=== PATIENT | female | born 1950 | race Caucasian/White ===

== ENCOUNTER 2024-09-25 14:19 | Outpatient (AMB) | payer MEDICARE, OTHER, SELFPAY ==
[2024-09-25 14:41] VITALS: BMI 24.1
--- NOTE | 2024-09-25 14:41 | MHC.OFFVIS ---
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 She describes her pains as sharp in nature. Her pains have gotten worse over the last year in spite of continued non operative treatment. She has had cortisone injections in the past which gave her no relief. She has also had viscosupplementation injections which gave her very good relief. She wishes to hold off on surgery for as long as possible. She has failed the last 3 months of conservative treatment which has consisted of physical therapy exercises, Tylenol, anti-inflammatory medicines and topical creams. At this point her bilateral knee pains are interfering with her activities of daily living and her ability to sleep well through the night. Allergies influenza virus vaccine, specific [Influenza Virus Vacc,Specific] Allergy (Unknown, Unverified 09/25/24 14:45) DOUBLE VISION FROM FLU SHOT acetaminophen [From VICODIN] Adverse Reaction (Unknown, Unverified 09/25/24 14:45) DIZZY cimetidine [From TAGAMET] Adverse Reaction (Unknown, Unverified 09/25/24 14:45) DIZZY SEASONAL ALLERGIES Allergy (Unknown, Uncoded 09/25/24 14:45) SNEEZING, ITCHY WATERY EYES From COMPAZINE Adverse Reaction (Unknown, Uncoded 09/25/24 14:45) JITTERY From TAGAMET Adverse Reaction (Unknown, Uncoded 09/25/24 14:45) DIZZY From VICODIN Adverse Reaction (Unknown, Uncoded 09/25/24 14:45) DIZZY Medication List - Last Reconciled 09/25/24 by Juan Ramon Jensen MD escitalopram oxalate 10 mg PO DAILY lorazepam 0.5 mg PO DAILY topiramate XR 25 mg PO DAILY Physical Exam Vital Signs: BMI result Body Mass Index 24.1 Const Other: Well-nourished well-developed very friendly female awake alert and oriented x3 in no acute distress Extrem Other: Bilateral lower extremity examination shows good capillary refill, no skin lesions noted, normal sensation light touch Bilateral knee examination shows minimal effusions, palpable crepitus with range of motion, pain with range of motion, range of motion from -3 degrees to 120 degrees, no instability Assessment & Plan Assessment & Plan (1) Osteoarthritis of left knee: Code(s): M17.12 - Unilateral primary osteoarthritis, left knee Category: Medical (2) Osteoarthritis of right knee: Code(s): M17.11 - Unilateral primary osteoarthritis, right knee Category: Medical Plan Ms. Jean presents with bilateral knee pains due to osteoarthritis. I had a lengthy discussion with the patient regarding the treatment options. The patient wishes to hold off on surgery for as long as possible. I agree with this plan. She has not gotten good relief from cortisone injections in the past. Thus, I will see whether or not her insurance company will cover a another viscosupplementation injection for both of her knees. I will see her back once the injections are available. Feel free to call me at any time should questions regarding her orthopedic management arise. I spent 20 minutes in reviewing the patient's records and imaging studies, seeing the patient and documenting in the medical record. Orders: Orders XR knee LT 3V Today M25.562 - Pain in left knee XR knee RT 3V Today M25.561 - Pain in right knee Coding Level of Care Code Est Pt Level 3 (99541) Complex EM visit Add On G2211 Diagnoses Osteoarthritis of left knee M17.12 Osteoarthritis of right knee M17.11
--- OUTSIDE RECORDS SUMMARY | 2024-09-26 22:03 | XMS_ITS | Patient Health Record ---
Author Organization [facility] Address [address] [place] [address] Care Team Providers Care Concrete [employer] [place] Name Role Phone Ramona Mayer Primary Care Provider Mariam Meléndez Unavailable [phone] Allergies Allergen (clinical drug ingredient) Drug/Non Drug Allergy documented on EMR Reaction Allergy Type Onset Date Status cimetidine Tagamet HB Unknown Drug Allergy Activ e Compazine Unknown Drug Allergy Active Reason For Referral No Information Medications Medication SIG (Take, Route, Frequency, Duration) Notes Start Date End Date Status buPROPion HCl ER (SR) 150 MG 1 tablet in the morning Orally Once a day for 30 day(s) Not-Taking LORazepam 0.5 MG 1 tablet at bedtime as needed Orally Once a day PRN Active Topiramate 50 MG as directed Orally Once a day Active SUMAtriptan Succinate 50 MG 1 tablet at least 2 hours between doses as needed Orally Twice a day PRN Not-Taking Lexapro 5 MG 1 tablet Orally Once a day Active Sertraline HCl 100 MG 1 tablet Orally On ce a day for 30 day(s) Not-Taking Omeprazole Not-Takin g Levothyroxine Sodium Not-Taking Estradiol Not-Taking Ibuprofen 800 MG 1 tablet with food o r milk as needed Orally Three times a day after surgery for 14 days 11/04/2023 Active Atorvastatin Calcium Not-Taking Immunizations Vaccine Route Administration Date Status Comme nts COVID-19 Pfizer BioNTech Vaccine Unknown 10/02/2021 Administered 1st 12/24/2020 2nd 01/14/2021 Social History Tobacco Use: Social History Observation Description Date Details (start date - stop date) Former Smoker NA - NA Alcohol Screen Question Answer Notes Did you have a drink contain ing alcohol in the past year? Yes How often did you have a dri nk containing alcohol in the past year? Monthly or less (1 point) Points 1 Interpretation Negative Tobacco use other than smoking: Question Answer Notes Are you an other tobacco user? No Tobacco Control (Standard) Question Answer Notes Tobacco use: Former smoker Additional Findings: Tobacco non-user Ex-cigaret te smoker Problems Problem Type SNOMED Code ICD Code Onset Dates Problem Status W/U Status Risk Notes Problem [id number] Hallux valgus (acquired) , left foot (M20.12) Active confirmed Decision for surgery (4) Problem 401470547832085 Hallux valgus (acquired) , right foot (M20.11) Active confirmed Problem [id number] Hammer toe of right foot (M20.41) Active confirmed Problem 808254420 Hammer toe of left foot (M20.42) Active confirmed Decision for surgery (4) Vital Signs Blood pressure diastolic 70 mm Hg 09/05/2024 Height 5ft5in in 09/05/2024 Blood pressure systolic 130 mm Hg 09/05/2024 Weight 148 lbs 09/05/2024 BMI 24.63 kg/m2 09/05/2024 Encounters Encounter Location Date Provider Diagnosis Surgery [facility] ([facility]) [address] [place] [address] 11/16/[address] [facility] ([facility]) [address] [place] [address] 09/26/2024 Mariam Salter [facility] [address] 11/02/2023 Mariam Salter Hallux valgus (acquired), left foot M20.12 ; Hammer toe of left foot M20.42 ; Pain in left toe(s) M79.675 and Bunion, left foot M21.[address] [facility] [address] 11/22/2023 Mariam Salter Hammer toe of left foot M20.42 ; Hallux valgus (acquired), left foot M20.12 and Bunion, left foot M21.612 [facility] [place] [address] 11/28/2023 Mariam Perica Hammer toe of left foot M20.42 ; Hallux valgus (acquired), left foot M20.12 and Bunion, left foot M21.[address] [facility] [address] 12/14/2023 Mariam Perica Hammer toe of left foot M20.42 ; Hallux valgus (acquired), left foot M20.12 and Bunion, left foot M21.[address] [facility] [address] 01/03/2024 Mariam Perica Hammer toe of left foot M20.42 ; Hallux valgus (acquired), left foot M20.12 ; Bunion, left foot M21.612 ; Pain in right foot M79.671 ; Pain in right ankle and joints of right foot M25.571 ; Hallux valgus (acquired), right foot M20.11 ; Hammer toe of right foot M20.41 ; Bunion, right foot M21.611 and Toe contracture, right M20.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 [facility] [address] 09/05/2024 Mariam Perica Hammer toe of right foot M20.41 ; Hallux valgus (acquired), right foot M20.11 ; Pain in right foot M79.671 and Toe contracture, right M20.5X1 [facility] [address] 01/03/2024 Mariam Perica [facility] [place] [address] [place] [address] 11/11/2023 Mariam Perica [facility] [address] [place] [address] 11/17[facility] [address] [place] [address] 11/28/2023 Mariam Perica [facility] [address] [address] 11/30/2023 Mariam Perica [facility] [address] [address] 08/28/2024 [facility] [address] [address] 09/21/2024 Mariam Salter Assessments Encounter Date Diagnosis (ICD Code) Assessment Notes Treatment Notes Treatment Clinical Notes Section Notes 11/02/2023 Hallux valgus (acquired), left foot (ICD-10 - M20.12) Decision for surgery (4) 11/02/2023 Hammer toe of left foot (ICD-10 - M20.42) Decision for surgery (4) 11/22/2023 Hallux valgus (acquired), left foot (ICD-10 - M20.12) 11/22/2023 Hammer toe of left foot (ICD-10 - M20.42) 11/28/2023 Hammer toe of left foot (ICD-10 - M20.42) 12/14/2023 Hammer toe of left foot (ICD-10 - M20.42) 01/03/2024 Hammer toe of left foot (ICD-10 - M20.42) 09/05/2024 Hallux valgus (acquired), right foot (ICD-10 - M20.11) 09/05/2024 Hammer toe of right foot (ICD-10 - M20.41) 09/05/2024 Pain in right foot (ICD-10 - M79.671) 01/03/2024 Bunion, left foot (ICD-10 - M21.612) 11/28/2023 Bunion, left foot (ICD-10 - M21.612) 12/14/2023 Hallux valgus (acquired), left foot (ICD-10 - M20.12) 01/03/2024 Hallux valgus (acquired), left foot (ICD-10 - M20.12) 11/22/2023 Bunion, left foot (ICD-10 - M21.612) 11/28/2023 Hallux valgus (acquired), left foot (ICD-10 - M20.12) 11/02/2023 Pain in left toe(s) (ICD-10 - M79.675) 11/02/2023 Bunion, left foot (ICD-10 - M21.612) 01/03/2024 Pain in right foot (ICD-10 - M79.671) 12/14/2023 Bunion, left foot (ICD-10 - M21.612) 09/05/2024 Toe contracture, right (ICD-10 - M20.5X1) 01/03/2024 Pain in right ankle and joints of right foot (ICD-10 - M25.571) 01/03/2024 Hallux valgus (acquired), right foot (ICD-10 - M20.11) 01/03/2024 Hammer toe of right foot (ICD-10 - M20.41) 01/03/2024 Bunion, right foot (ICD-10 - M21.611) 01/03/2024 Toe contracture, right (ICD-10 - M20.5X1) Plan Of Treatment Pending Test Test Name Order Date X ray : Foot, left 3V 11/02/2023 X ray : Foot, left 3V 11/22/2023 X ray : Foot, left 3V 11/28/2023 X ray : Foot, left 3V 12/14/2023 X ray : Foot, left 3V 01/03/2024 X ray : Foot, left 3V 01/07/2023 X ray : Foot, right 3V 01/07/2023 X ray : Foot, right 3V 01/03/2024 X ray : Foot, right 3V 09/05/2024 Next Appt Details Provider Name:Mariam small, 10/02/2024 01:45:00 PM, [address] [place] [address], [phone], Provider Name:Mariam small, 10/08/2024 11:00:00 AM, [address] [place] [address], [phone], Provider Name:Mariam small, 10/23/2024 01:45:00 PM, [address] [place] [address], [phone], Insurance Providers Payer Name Payer Address Payer Phone Subscriber Number Group Number Insured Name Patient Relationship to Insured Coverage Start Date Coverage End Date Medicare National [facility] [address] [place] [address] [phone] [id number] Ramona Jean Self - patient is the insured [employer] [address] [place] [address] [phone] [id number] Ramona Jean Self - patient is the insured Medical (General) History Medical History History ICD Code Anxiety Broken bones Cataracts Gall bladder problems Headaches/Migraines Measles Mumps Chicken pox Osteopenia Surgical History Surgery Date(Month/Year) gall bladder 2016 foot surgery 2019 [facility] 2004 finger surgery 09/08 Tony w/Aubrey Left, ALEXIA w/vinicius L4 pos sible keena osteotomy 11/09 eye surgery 08/27/24
--- OUTSIDE RECORDS SUMMARY | 2024-09-26 22:03 | XMS_ITS ---
Author Organization [facility] Address [address] [place] [address] Care Team Providers Care Patient Relations Coordinator Name Role Phone Ramona Mayer Primary Care Provider Mariam Meléndez [phone] REASON FOR VISIT [employer] Coverage Encounters Encounter Location Date Provider Diagnosis [address] [address] 09/21/2024 Mariam Salter Plan Of Treatment Next Appt Details Provider Name:Mariam small, 10/02/2024 01:45:00 PM, [address] [place] [address], [phone], Provider Name:Mariam small, 10/08/2024 11:00:00 AM, [address] [place] [address], [place], [phone], Provider Name:Mariam smlal, 10/23/2024 01:45:00 PM, [address] [place] [address], [phone], Progress Notes * Jamison JEANOB:1950 (74 yo F)Acc No.[id number]:09/21/2024 Patient:?Ramona JEAN :1950???Age:74 Y???Sex:Female Address:[address] [place] [address], [facility] [place], [address] * true * Date:? Generated for Terry cervantes/Mick/Teresaitting on:?09/26/2024 10:03 PM EST
--- OUTSIDE RECORDS SUMMARY | 2024-09-26 22:03 | XMS_ITS ---
Author Organization [facility] Address [address] [place] [address] Care Team Providers Care Senior Planning Manager Name Role Phone Ramona Mayer Primary Care Provider Mariam Meléndez [phone] Encounters Encounter Location Date Provider Diagnosis Surgery [facility] ([facility] [address] [place] [address] 09/26/2024 Mariam Salter Plan Of Treatment Next Appt Details Provider Name:Mariam small, 10/02/2024 01:45:00 PM, [address] [place] [address], [phone], Provider Name:Mariam small, 10/08/2024 11:00:00 AM, [address] [place] [address], [phone], Provider Name:Mariam small, 10/23/2024 01:45:00 PM, [address] [place] [address], [phone], Progress Notes * Karla JEANeDOB:1950 (74 yo F)Acc No.[id number]:09/26/2024 Patient:?Ramona JEAN Provider:?Mariam Salter DPM :1950???Age:74 Y???Sex:Female D ate:09/26/2024 Address:[address] [place] [address], [place] [address], [phone] Pcp:Ramona Mayer * Images: * The named appointment provid er may or may not be the originator of this progress note, and it is not deemed complete until electronically signed by the appointment provider. Sign off status: Pending * Provider:Joey Salter DPM Date:?08/2024 Generated for Terry cervantes/Mick/Miguel Ángel on:?09/26/2024 10:03 PM EST
--- OUTSIDE RECORDS SUMMARY | 2024-09-26 22:03 | XMS_ITS ---
Author Organization [employer] [facility] [employer] [facility] Address [address] [place] [address] Care Team Providers Care Upfitter Name Role Phone Ramona Mayer Primary Care Provider Mariam Meléndez Unavailable [phone] Allergies Allergen (clinical drug ingredient) Drug/Non Drug Allergy documented on EMR Reaction Allergy Type Onset Date Status cimetidine Tagamet HB Unknown Drug Allergy Activ e Compazine Unknown Drug Allergy Active REASON FOR VISIT Foot pain Medications Medication SIG (Take, Route, Frequency, Duration) Notes Start Date End Date Status Sertraline HCl 100 MG 1 tablet Orally On ce a day for 30 day(s) Not-Taking Omeprazole Not-Takin g Levothyroxine Sodium Not-Taking Estradiol Not-Taking Atorvastatin Calcium Not-Taking buPROPion HCl ER (SR) 150 MG 1 [...] 1 tablet Orally Once a day Active Ibuprofen 800 MG 1 tablet with food o r milk as needed Orally Three times a day after surgery for 14 days 11/04/2023 Active Social History Tobacco Use: Social History Observation Description Date Details (start date - stop date) Former Smoker NA - NA Tobacco use other than smoking: Question Answer Notes Are you an other tobacco user? 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 Assessments Encounter Date Diagnosis (ICD Code) Assessment Notes Treatment Notes Treatment Clinical Notes Section Notes 09/05/2024 Hammer toe of right foot (ICD-10 - M20.41) 09/05/2024 Hallux valgus (acquired), right foot (ICD-10 - M20.11) 09/05/2024 Pain in right foot (ICD-10 - M79.671) 09/05/2024 Toe contracture, right (ICD-10 - M20.5X1) Plan Of Treatment Medication Medication Name Sig Start Date Stop Date Notes Ibuprofen 800 MG 1 tablet with food o r milk as needed Orally Three times a day after surgery for 14 days 11/04/2023 Pending Test Test Name Order Date X ray : Foot, right 3V 09/05/2024 Next Appt Details Follow Up: after surgery, Re ason: Provider Name:Mariam small, 10/02/2024 01:45:00 PM, [address] [place] [address], [phone], Provider Name:Mariam small, 10/08/2024 11:00:00 AM, [address] [place] [address], [place], [phone], Provider Name:Mariam small, 10/23/2024 01:45:00 PM, [address] [place] [address], [phone], Progress Notes * Jamison JEANOB:1950 (74 yo F)Acc No.[id number]:09/05/2024 Progress Note Patient:?Ramona JEAN Provider:?Mariam Salter DPM :1950???Age:74 Y???Sex:Female D ate:09/05/2024 Address:[address] [place] [address] [id number] Pcp:Ramona Mayer Subjective: * Chief Complaints: * ???Foot pain * HPI: ???Foot Pain:?Nature:?aching , tenderness , throbbing.?Location:?Great toe joint, RIGHT and 2nd toe?.?Duration:?several years.?Onset:?activity , gradual.?Course:?worse.?Aggravated:?any pressure , standing , walking , shoes.?Treatments:?rest/alter normal daily activity, previous bunion surgery, , bracing, straps, wraps.? * ROS:?General/Constitutional:?Nausea?denies.?Vomiting?denies.?Hunger Thirst?denies.?Loss appetite?denies.?Chills?denies.?Fatigue?denies.?Fever?denies.?Night Sweats?denies.?Unexplained weight loss?denies.?Unexplained weight gain?denies.?HEENTM:?Dentures?denies.?Dizziness?denies.?Glasses/contacts?denies.?Retinopathy?de nies.?Blurred/double vision?denies.?TMJ?denies.?Discharge/drainage?denies.?Implants?denies.?Sore throat?denies.?Dental implants?denies.?Hard of hearing ?denies.?Difficulty chewing/swallowing/speaking?denies.?Nose bleeds?denies.?Sore mouth?denies.?Respiratory:?On Oxygen?denies.?Pneumonia/pleurisy?denies.?Bronchitis?denies.?Emphysema?denies.?C oughing?denies.?Cough blood?denies.?Shortness of breath?denies.?Wheezing?denies.?Cardiovascular:?Pacemaker?denies.?MVP?denies.?WPW?denies.?CHF?denies.?Heart attack?denies.?Septal defect?denies.?Rapid beat?denies.?Chest pain ?denies.?Atrial Fib.?denies.?Murmur/Palpitations?denies.?Gastrointestinal:?Hemorrhoids?denies.?Stomach/Abdominal pain?denies.?Dark blood stool?denies.?Irritable bowel ?denies.?Constipation?denies.?Diarrhea?denies.?Hematology:?Swelling?denies.?Clots?denies.?Varicose Veins?denies.?Bruising?denies.?Bleeding problem?denies.?Genitourinary:?Blood urine?denies.?Frequent/Painfu/urination/bladder control?denies.?Kidney stones?denies.?Infection (UTI)?denies.?Nephropathy?denies.?sex trans dis (STD)?denies.?Prostate?denies.?Musculoskeletal:?Hammertoes?admits.?Bunions?admits.?Back Pain?denies.?Muscle Cramps/ Resting?denies.?Muscle cramps / walking?denies.?Generalized aches and pains?denies.?Weakness?denies.?Integ.:?Egan?denies.?Scars?denies.?Corns/calluses?denies.?Ingrown nails?denies.?Painful nails?denies.?Open Sores?denies.?Rashes?denies.?Neurologic:?Difficulty sleeping?denies.?Brain disorder?denies.?Numbness?denies.?Balance trouble?denies.?Confusion?denies.?Fainting/blackouts?denies.?Tingling?denies.?Tr emors?denies.? * Medical History:? * Surgical History:?gall bladd er 2016foot surgery 2019DN 2004finger surgery 09/08[place] w/Aubrey Left, HT w/tariire L4 possible keena osteotomy 11/09eye surgery 08/27/24 * Hospitalization/Major Diagno stic Procedure:?Denies Past Hospitalization * Family History:?Mother: dece ased, foot problems, diagnosed with Unspecified essential hypertension.?Father: .? * Social History:?Tobacco Use:?Tobacco use other than smoking?Are you an other tobacco user??No ?Tobacco Control (Standard)?Tobacco use:?Former smoker ?Additional Findings: Tobacco non-user?Ex-cigarette smoker * Medications:?TakingLexapro 5 MG Tablet 1 tablet Orally Once a day Topiramate 50 MG Tablet as directed Orally Once a day LORazepam 0.5 MG Tablet 1 tablet at bedtime as needed Orally Once a day , Notes to Pharmacist: PRNTaking Lexapro 5 MG Tablet 1 tablet Orally Once a day Taking Topiramate 50 MG Tablet as directed Orally Once a day Taking LORazepam 0.5 MG Tablet 1 tablet at bedtime as needed Orally Once a day , Notes to Pharmacist: PRNNot-Taking/PRNSUMAtriptan Succinate 50 MG Tablet 1 tablet at least 2 hours between doses as needed Orally Twice a day , Notes to Pharmacist: PRNIbuprofen 800 MG Tablet 1 tablet with food or milk as needed Orally Three times a day after surgery buPROPion HCl ER (SR) 150 MG Tablet Extended Release 12 Hour 1 tablet in the morning Orally Once a day Atorvastatin Calcium Estradiol Levothyroxine Sodium Omeprazole Sertraline HCl 100 MG Tablet 1 tablet Orally Once a day Medication List reviewed and reconciled with the patientNot-Taking/PRN SUMAtriptan Succinate 50 MG Tablet 1 tablet at least 2 hours between doses as needed Orally Twice a day , Notes to Pharmacist: PRNNot-Taking/PRN Ibuprofen 800 MG Tablet 1 tablet with food or milk as needed Orally Three times a day after surgery Not-Taking/PRN buPROPion HCl ER (SR) 150 MG Tablet Extended Release 12 Hour 1 tablet in the morning Orally Once a day Not-Taking/PRN Atorvastatin Calcium Not-Taking/PRN Estradiol Not-Taking/PRN Levothyroxine Sodium Not-Taking/PRN Omeprazole Not-Taking/PRN Sertraline HCl 100 MG Tablet 1 tablet Orally Once a day Medication List reviewed and reconciled with the patient * Allergies:?CompazineTagamet HByes[Allergies Verified] Objective: * Vitals:?Ht: 5ft5in, Wt:148, BMI:24.63, Shoe size: 8, BP:130/70mm Hg, Ht-cm: 165.1 cm, Wt-k.13 kg. * Examination: ???Dermatologic: ?SKIN FINDINGS:?Skin exam reveals normal color, texture, elasticity, and turgor. There are no masses, nor excrescences. The interspaces are clear, B/L.?Orthopedic: ?MUSCLE STRENGTH:?5/5 all groups in a symmetrical fashion, B/L.?BUNION:?RIGHT Medially prominent 1st MPJ,(+) Pain on palpation,inflammation present medially,Lateral tracking 1st MPJ incompletely reducible, RIGHT , Limited 1st MPJ Dorsal ROM.?DIGITAL DEFORMITIES:?Digital contracture , with evidence of shoe producing skin irritation , PIPJ , incompl-reducible with WB or to push-up test , MPJ Contracture/Dorsal subluxation , T6.?X-Rays - IMAGING REPORT: ?Clinical Indication(s):?Evaluate Biomechanical Deformity.?Views:?3 views of Foot ,AP , LAT , LO RIGHT.?Findings:?normal bone and soft tissue density consistent for patients age and sex?.?Digits:?show asymmetrical joint space narrowing at the PIPJ consistent with clinical finding of hammertoe deformity , show dorsal subluxation of MTPJ , 2nd digit.?HAV:?increased First Intermetatarsal angle and Hallux Abductus angle consistent with Bunion deformity noted, signs of previous bunionectomy with irregularity of 1st MPJ , there is asymmetrical narrowing of the 1st MPJ joint space , increased Hallux Abductus angle.?Fracture:?Negative fractures identified.?Neurological: ?TINEL'S COMPRESSION:? Negative, Saphenous nerve distribution, Right.? 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 Plan: * Treatment: 2.?Hammer toe of right foot? Refill Ibuprofen Tablet, 800 MG, 1 tablet with food or milk as needed, Orally, Three times a day after surgery, 14 days, 32, Refills 0.?? * Procedure Codes:?35342 X-RAY EXAM OF RIGHT FOOT 3V, Modifiers: 26 , RT * Preventive Medicine:? ??Counseling:?Discussion:?-14: Office or other outpatient visit for the evaluation and management of an established patient, which required a medically appropriate history and/or examination and MODERATE level of DECISION MAKING for: 1 OR MORE CHRONIC PROBLEM(S) THATS WORSENING, 2 STABLE CHRONIC PROBLEMS, A NEWLY DIAGNOSED PROBLEM WITH UNCERTAIN PROGNOSIS, AN ACUTE COMPLICATED INJURY WITH MULTIPLE TREATMENT OPTIONS, OR AN ACUTE PROBLEM WITH ACCOMPANYING SYSTEMIC SYMPTOMS, THAT POSE(S) A MODERATE RISK OF MORBIDITY. THIS CONDITION MAY ALSO INCLUDE RX DRUG MANAGEMENT, OR A DECISON FOR MINOR SURGERY. The visit on the day of the encounter encompassed interpreting the data and educating the patient as to the nature of their condition, treatment options available according to their individual PMH, meds, allergies, and overall health/living conditions, as well as any potential risks or complications that may occur from a failure to adhere to, and participate in, the recommended course of therapy. The discussion included a complete verbal, and/or written explanation of the examination results, any x-rays taken, the proposed diagnosis, and outline of the treatment plan. A schedule for future care needs was also explained. The patient verbalized an understanding of the instructions at this time and agreed to be an active participant in their treatment. If the patient should think of any questions or concerns after the visit, I have encouraged the patient to call the office.?Digital Surgery:?Digital surgery was discussed with the patient, including the risks of surgery(below), vs not having surgery (persistent pain, deformity, risk for skin ulceration/infection, loss of toe), the potential surg complications, the anesthesia, and the usual post-op course. No guarentees were given. We discussed the potential procedure complications including, but not limited to: pain, swelling, bleeding, scarring, numbness, infection, delayed/non healing, floppy/unstable/shorthened toe, recurrence, failure of the procedure, overcorrection leading to plantarflexed/downward positioned toe, recurrence, need for further surgery, as well as the possibility for loss of the toe itself. We discussed the use of local anesthesia, and the usual post-op course for healing. No guarentees were given. The patient verbally indicated a full understanding of the above conversation, and any other of their questions were answered to their satisfaction. Alternatives to the procedure were also discussed, including conservative care. I also discussed the usual post-operative course and gave no guarantees regarding outcome, I discussed surgery for a hammertoe by digital fusion with K-wire fixation, I also discussed relocating the subluxed/dislocated MPJ with release/relocation of soft tissue and possible internal fixation to maintain correction.?Discussion for Bunion sx:?Several different types of Bunion surgeries were discussed with the patient, including, but not limited to: Modified Frias bone removal and soft tissue release/realignment, Tony osteotomy with soft tissue release/realignment and internal fixation, and Keena vs 1st MPJ fusion, discussed that since pt has previous bunionectomt and apprears worse angulation and degeneration of 1st MPJ the procedure on the left foot may not be a successful as right foot. Pt has considered both options and wants to consent for both options, pt would prefer the Tony and Keena, but if intraop the jonit is not well maintained wants to have a fusion. Pt states she wants me to decide during the surgery what procedure would have the best outcome. I discussed that given her Xray findings a fusion would likely be the best results, but will asses the joint intraop . We discussed the risks of having surgery (described below) vs not having surgery (persistent pain, deformity, risk for skin ulceration/infection, loss of toe) as well as the potential surgical complications including, but not limited to: pain, swelling, bleeding, scarring, numbness, infection, delayed/non healing, floppy/unstable/shorthened toe, recurrence, failure of the procedure, overcorrection leading to plantarflexed/downward/upward positioned toe, recurrence, need for further surgery, as well as the possibility for loss of the toe itself. We discussed the use of IV/Local regional anesthesia, and the usual post-op course for healing. No guarentees were given. The patient verbally indicated a full understanding of the above conversation, and any other of their questions were answered to their satisfaction.?Podiatric Surgery Counseling:?Rx narcotic postop pain meds were deferred, Recommended alternating/staggering Tylenol XS 2 tabs and Motrin 800mg q 8 hrs ea for discomfort.?X-rays:?Discussed and reviewed the X-rays with the patient. We discussed how the findings relate to the patients symptoms/complaints. Answered any and all questions..? * Follow Up:?after surgery * Images: * Sign off status: Completed true * Provider:?Mariam Salter DPM Date:? Generated for Terry cervantes/Mick/Teresaitting on:?09/26/2024 10:03 PM EST History and Physical Notes * HPI (History of Present Illness) Category Sub-Category Detail Notes Category Not es Foot Pain Nature: aching , tenderness , throbb ing Location: Great toe joint, RIG HT and 2nd toe Duration: several years Onset: activity , gradual Course: worse Aggravated: any pressure , stand ing , walking , shoes Treatments: rest/alter normal da cam activity, previous bunion surgery, , bracing, straps, wraps Examination Category Sub-Category Detail Notes Category Not es Neurological TINEL'S COMPRESSION: Negative, S aphenous nerve distribution, Right Dermatologic SKIN FINDINGS: Skin exam reveal s normal color, texture, elasticity, and turgor. There are no masses, nor excrescences. The interspaces are clear, B/L Orthopedic BUNION: RIGHT Medially p rominent 1st MPJ, (+) Pain on palpation, inflammation present medially, Lateral tracking 1st MPJ incompletely reducible, RIGHT , Limited 1st MPJ Dorsal ROM DIGITAL DEFORMITIES: Digital contracture , with evidence of shoe producing skin irritation , PIPJ , incompl-reducible with WB or to push-up test , MPJ Contracture/Dorsal subluxation , T6 MUSCLE STRENGTH: 5/5 all groups in a symmetrical fashion, B/L X-Rays - IMAGING REPORT Findings: normal b one and soft tissue density consistent for patients age and sex Fracture: Negative fractures i dentified Digits: show asymmetrical david int space narrowing at the PIPJ consistent with clinical finding of hammertoe deformity , show dorsal subluxation of MTPJ , 2nd digit HAV: increased First Inte rmetatarsal angle and Hallux Abductus angle consistent with Bunion deformity noted, signs of previous bunionectomy with irregularity of 1st MPJ , there is asymmetrical narrowing of the 1st MPJ joint space , increased Hallux Abductus angle Views: 3 views of Foot ,AP , LAT , LO RIGHT Clinical Indication(s): Evaluate Biomech anical Deformity
--- OUTSIDE RECORDS SUMMARY | 2024-09-26 22:04 | XMS_ITS | Data Portability ---
Author Organization [place] [facility] [place] Address [address] [place] [address] Care Team Providers Care Allergist Immunologist Name Role Phone AUDI HARDY Primary Care Provider [phone] Assessment Encounter Date Assessment Date Assessment LastModified by Organization Details LastModified Time 06/17/2023 06/17/2023 This is a very pleasant 73-year-old female here for follow-up excision of mucoid cyst left long finger, local dorsal flap advancement long finger. Date of surgery 06/06/2023. She appears to be doing well clinically. She will continue with incision scar management she can begin range of motion she should keep the surgical site dry. With a dry sterile dressing when out and about. Did review her x-rays with her which appear to be no acute findings. Follow-up appointment with Dr. Harrison in 3 weeks. Should she have any questions or concerns she should contact our office immediately. She agrees with the above-noted plan. Indirect care and treatment in conjunction with Dr. Sandoval Additional treatment plan discussed with the patient in detail included the following; - Provider focused nonsteroidal anti-inflammatory regimen (discussed were the pros, cons, benefits and risks as well as any black box warnings) in patients over 60 years old they should be very cautious in taking these medications due to potential decreased kidney function and or elevated blood pressure. - Analgesic pain medication for pain suppression (discussed were the pros, cons, benefits and risks as well as any black box warnings) - The use of topical pain relieving medication were discussed - The use of ice to decrease inflammation and pain - The use of assistive ambulatory devices for ambulation and fall prevention - Formal specific guided physical therapy program I reviewed my findings at length with the patient today. ??We discussed the nature and etiology of this problem along with current treatment options. We discussed the expected course and outcomes and what to expect. We also discussed risks and benefits. ?? All of their questions were answered today, and there was exhibited understanding and comprehension of all that was discussed. Time Spent: 10 minutes were spent reviewing previous imaging and charting. ??10 minutes were spent obtaining patient history. ??5 minutes were spent on physical exam. ??5??minutes were spent explaining diagnosis and assessment. Today's documentation was made using voice recognition software. This note may contain grammatical errors secondary to the software. Not available 06/17/2023 10:56:06 07/06/2023 07/06/2023 INTERIM HISTORY: The patient is 1 month status post excision mucous cyst left long finger, debridement DIP joint and local dose advancement flap. She is doing extremely well. There are no complaints. EXAMINATION OF THE LEFT LONG FINGER: Skin is intact. Scar unremarkable. Scar barely appreciated. Mild rubor associated with the scar. Minimal swelling. No tenderness or instability at the DIP joint. Range of motion DIP joint intact. Good range of motion for the entire digit. Neurovascular status is intact. RADIOGRAPHS: Radiographs of the left long finger are obtained today. PA, lateral and oblique projections reveal satisfactory reduction DIP joint with small osteophytes and mild joint space narrowing. DISCUSSION: The patient is doing well. She can return to normal activities as tolerated. She is not scheduled for any reevaluation. If she develops any problems, concerns or questions, she will contact the office. [email or web address] Not available 07/06/2023 12:29:47 08/17/2023 08/17/2023 73-year-old fema le bilateral knee arthritis with arthralgia gets good relief with gel injections. She opted for this bilaterally at today's visit. After verbal consent was granted by patient. The procedures were carried out bilaterally. She tolerated this well aftercare instructions were discussed in detail. Follow-up visit 6 months time for repeat clinical exam. Should she have any questions should they arise she should contact my office immediately. Patient was seen and evaluated by Tali Queen PA-C in indirect conjuction with Documenting Provider: Jason Sandoval MD . He/She agrees with history, physical examination, tests/diagnostic imaging, and treatment plan. Additional treatment plan discussed with the patient (only initiated if in boldface font) otherwise not applicable. Treatment may include the following; - Provider focused nonsteroidal anti-inflammatory regimen (discussed were the pros, cons, benefits and risks as well as any black box warnings) in patients over 60 years old they should be very cautious in taking these medications due to potential decreased kidney function and or elevated blood pressure. - Analgesic pain medication for pain suppression (discussed were the pros, cons, benefits and risks as well as any black box warnings) - The use of topical pain relieving medication were discussed - The use of ice to decrease inflammation and pain - The use of assistive ambulatory devices for ambulation and fall prevention - Formal specific guided physical therapy program I reviewed my findings at length with the patient today. ??We discussed the nature and etiology of this problem along with current treatment options. We discussed the expected course and outcomes and what to expect. We also discussed risks and benefits. ?? All of their questions were answered today, and there was exhibited understanding and comprehension of all that was discussed. Time Spent: 10 minutes were spent reviewing previous imaging and charting. ??10 minutes were spent obtaining patient history. ??5 minutes were spent on physical exam. ??5??minutes were spent explaining diagnosis and assessment. Today's documentation was made using voice recognition software. This note may contain grammatical errors secondary to the software. [email or web address] Not available 08/17/2023 13:30:00 02/23/2024 02/23/2024 73-year-old fema le with bilateral knee pain. History, examination and x-rays are consistent with osteoarthritis. After discussion regarding treatment options she wishes to proceed with viscosupplementation injections. Follow-up pending insurance authorization. This patient was seen and evaluated by Tali Pappas MS, PAAndreaC in indirect conjunction with documenting/supervisin g provider Jason Sandoval MD. He agrees with history, physical examination, tests/diagnostic imaging, and treatment plan. This document was generated using voice recognition software. As a result, there may be unintended spelling, grammatical and/or textual errors. Not available 02/23/2024 11:03:12 03/29/2024 03/29/2024 HPI: Patient presents for monovisc viscosupplementation injection for the treatment of bilateral knee pain. All questions are answered to the patient's satisfaction. Exam: Knee(s) examined to show no sign of infection. Skin is intact. Score of 2 or more on Kellgren Shravan scale. Tenderness to palpation of joint line. Distal checks are intact. Assessment/Plan: Knee pain secondary to osteoarthritis. See the attached procedure note. Follow up per viscosupplementation protocol. Follow up sooner with any problems. This patient was seen and evaluated by Tali Pappas MS, PA-C in indirect conjunction with documenting/supervisin g provider Jason Sandoval MD. He agrees with history, physical examination, tests/diagnostic imaging, and treatment plan. Not available 03/29/2024 09:17:45 Plan of Treatment Reminders Order Date Submit Date Provider Last Modified By Organization Details Last Modified Time Details Appointments None recorded. Lab None recorded. Referral None recorded. Procedures intra-artic ular injection, knee, viscosupple ment (PROC) - Please check insurance for [employer] Author[employer]ati on, insurance preferred med.Choose One: 3 series or 1 seriesKn ee Laterality: Bilatera l 2023 024 [email or web address] Not available 4 11:03:36 Surgeries None recorded. Imaging XR, finger(s), 2 or more view 2022 023 [email or web address] [facility], [address], [address], [place], [address], 3 15:12:14 XR, finger(s), 2 or more view 2022 023 [email or web address] [facility], [address], [address], [place], [address], 3 13:46:00 XR, knee, 4 or more view 2023 024 [facility], [address], [address], [place], [address], 4 11:44:43 XR, knee, 4 or more view 2023 024 [facility], [address], [address], [place], [address], 4 11:44:43 Medication Orders Monovisc 88 mg/4 mL intra-artic ular syringe 2022 023 [email or web address] [id number], [address] [place], [address], 3 15:11:34 Monovisc 88 mg/4 mL intra-artic ular syringe 2022 023 [email or web address] [id number], [address] [place], [address], 3 15:11:34 Monovisc 88 mg/4 mL intra-artic ular syringe 2023 024 [id number], [address] [place], [address], 4 09:42:33 Monovisc 88 mg/4 mL intra-artic ular syringe 2023 024 [email or web address] Not available 12:00:44 Patient TargetsNo targets recorded. Patient Instructions Encounter Date Encounter Id Patient Instructions Last Modified By Organization Details Last Modified Time 06/17/2023 [id number] x-rays with her which appear to be no acute findings. Not available 06/17/2023 10:56:11 08/17/2023 [id number] You have been pr ovided with a viscosupplementation injection in order to reduce the pain that you are experiencing from your arthritis. The injection consists of a lubricating injection called hyaluronic acid. Please note that not everyone will have a lasting response following the injection. PATIENT INSTRUCTIONS I recommend icing the affected area for 20 minutes 3-4 times per day. It is recommended that you refrain from any high level activities using the joint or limb that was injected for approximately 24-48 hours. Normal day-to-day activities are generally not a problem. POSSIBLE SIDE EFFECTS Individuals with dark complexions may experience some skin discoloration locally at the site of the injection. There is the possibility of an increase in discomfort within 48 hours following the injection. This is called a ? flare? . To help minimize the chances of this, please see the post-injection instructions above. There is a less than 1% chance of an infection. If you notice any signs of infection (redness, warmth, drainage, fever greater than 100 degrees) please call our office or contact us through the portal MIGUEL. [email or web address] Not available 08/17/2023 12:58:31 02/23/2024 [id number] {{2 3 4 5 6 7 8* 9}} view X-ray study obtained during today's office encounter show evidence of {{mild moderate* severe }} {{right left bilateral* }} {{hip knee*}} osteoarthritis. There is joint space narrowing, subchondral sclerosis and marginal osteophytosis. Kellgren-Shravan grade {{0 1 2* 3 4}}. No evidence of acute fracture or osteolytic findings. Not available 02/23/2024 11:02:04 Reason for Referral None Reported. Results Created Date Observation Date Name Description Value Unit Range Abnormal Flag Note LastModifiedBy Organization Detail LastModifiedTime 05/26/20 23 05/26/2023 rhyth m ECG, 1-3 leads ; brett ng only witho ut inter preta tion and repor t (PROC ) No observ ation record ed. [email or web address] Not Available 2022 09:56:08 Result Notes None recorded. Problems Name Problem SNOMED Code Status Onset Date Resolution Date Notes Provider Name and Address Organization Details Recorded Time Digital mucous cyst of left hand 7961046374175 101 Active 2022 Killian Harrison MD [address], [place], [address], [place] [facility] 3 15:08:41 Arthritis of finger of left hand 0290835315478 9100 Active 2022 Killian Harrison MD [address], [place], [address], [place] [facility] 3 15:08:56 Osteoarthri tis of right knee joint 1282055641585 00 Active 2023 TALI PAPPAS PA-C [address], [place], [address], [place] [facility] 4 11:02:24 Osteoarthri tis of left knee joint 2666453998392 09 Active 2022 TALI QUEEN PA-C [address], [place], [address], [place] [facility] 3 14:13:59 Problem Notes None recorded. Procedures Surgical History Date Name Laterality Status Provider Name and Address Organization Details Recorded Time 03/29/20 24 Monovisc Knee Inj w/US completed TALI PAPPAS PA-C [address], [place], [address], [place] [facility] 03/29/2024 09:17:11 08/17/20 23 Monovisc Knee Inj completed TALI QUEEN PA-C [address], [place], [address], [place] [facility] 08/17/2023 13:29:00 02/26/20 23 Monovisc Knee Inj completed TALI QUEEN PA-C [address], [place], [address], [place] [facility] 02/25/2023 14:13:40 02/26/20 23 Knee Joint/Bursa Asp & Inj completed TALI QUEEN PA-C [address], [place], [address], [place] [facility] 02/25/2023 14:13:19 Hand Surgery completed Frederic Cardenas [place] - [facility] 07/06/2023 11:21:12 Gallbladder Surgery completed Rebel William [place] - [facility] 02/25/2023 13:49:24 Imaging Results Imaging Date Name Status LastModified by Organization Details LastModified Time 05/26/2023 rhythm ECG, 1-3 leads; tracing only without interpretation and report (PROC) completed [email or web address] Information not available 05/30/2023 09:56:08 Procedure Notes None recorded. Medical Equipment None Reported. Allergies Allergen ID Allergen Name Allergen Category Reaction Reaction Severity Criticality Documentation Date Start Date Code Code System Note Provider Name and Address Organization Details Recorded Time 3935 Tagamet medicatio n Not available Not available Not available 02/25/2023 40355 2 RxNorm Rebel William null, [place] [facility] 3 13:47:34 3936 Compazine medicatio n Not available Not available Not available 02/25/2023 82882 6 RxNorm Rebel William null, [place] - [facility] 3 13:47:47 Medications Name Sig Start Date Stop Date Status Note LastModified by Organization Details LastModified Time tizanidine 2 mg tablet TAKE 1 TABLET BY MOUTH EVERY 8 HOURS NEEDED (PAIN) FOR UP TO 10 DAYS. 05/12 completed Not Available Not Available Not Available ibuprofen 800 mg tablet TAKE 1 TABLET BY MOUTH 3 TIMES A DAY NEEDED WITH FOOD OR MILK AFTER SURGERY FOR 14 DAYS active Not Available Not Available No t Available sertraline 100 mg tablet TAKE ONE TAB BY MOUTH WITH 25MG TAB TO MAKE A TOTAL OF 125MG DAILY active Not Available Not Available No t Available sumatriptan 50 mg tablet TAKE 1 TABLET BY MOUTH EVERY DAY NEEDED FOR 30 DAYS active Not Available Not Available No t Available topiramate 25 mg tablet TAKE 1 TABLET BY MOUTH TWICE A DAY active Not Available Not Available No t Available acetaminoph en 300 mg-codeine 30 mg tablet TAKE 1 TO 2 TABLETS BY MOUTH EVERY 4 TO 6 HOURS NEEDED FOR PAIN DNF 06/06 completed Not Available Not Available Not Available bupropion HCl SR 100 mg tablet,12 hr sustained-r elease TAKE 1 TABLET BY MOUTH EVERY DAY active Not Available Not Available No t Available Kenalog 40 mg/mL suspension for injection Take 1 mL by injection route. 05/12 completed Not Available Not Available Not Available lorazepam 0.5 mg tablet TAKE 1 TABLET BY MOUTH EVERY DAY NEEDED active Not Available Not Available No t Available sertraline 25 mg tablet 125 mg every day by oral route. active Not Available Not Available No t Available ipratropium bromide 42 mcg (0.06 %) nasal spray SPRAY 2 SPRAYS BY INTRANASA L ROUTE 3 TIMES A DAY FOR 5 DAYS 05/12 completed Not Available Not Available Not Available bupropion HCl XL 300 mg 24 hr tablet, extended release TAKE 1 TABLET BY MOUTH EVERY DAY active Not Available Not Available No t Available bupropion HCl XL 150 mg 24 hr tablet, extended release TAKE 1 TABLET BY MOUTH EVERY DAY active Not Available Not Available No t Available escitalopra m 5 mg tablet TAKE 1 TABLET BY MOUTH EVERY DAY active Not Available Not Available No t Available lidocaine (PF) 10 mg/mL (1 %) injection solution Take 2 mL by injection route. 05/12 completed Not Available Not Available Not Available Monovisc 88 mg/4 mL intra-artic ular syringe Take 88 mg by intraarti cular route. 2023 active Not Available Not Available Not Avai lable Vitals Date Recorded Body height Body mass index (BMI) Body weight Provider Name and Address Organization Details Last Updated DateTime 03/29/2024 165.1 cm 24.1 kg/m2 11480.89 g Mattie Amos [place] [facility] 03/29/2024 09:07:13 Date Recorded Body height Body mass index (BMI) Body weight Provider Name and Address Organization Details Last Updated DateTime 07/06/2023 165.1 cm 24.1 kg/m2 05836.89 g Frederic Cardenas [place] [facility] 07/06/2023 11:21:03 Date Recorded Body height Provider Name an d Address Organization Details Last Updated DateTime 08/17/2023 165.1 cm Bibi Lacy [place] [facility] 08/17/2023 13:13:11 Social History Question Answer Notes LastModified by Organizat ion Details LastModified Time Tobacco Smoking Status Former Smoker Rebel james, [place] - [facility] 02/25/2023 13:48:34 What Is Your Level Of Alcohol Consumption? Occasional [email or web address] Information not available 02/25/2023 When Did You Quit Smoking? 16+yearssincel astcigarette [email or web address] Information not available 02/25/2023 Do You Use Any Illicit Or Recreational Drugs? No [email or web address] Information not available 02/25/2023 Do You Or Have You Ever Used Any Other Forms Of Tobacco Or Nicotine? No [email or web address] Information not available 02/25/2023 Sex: Unknown Functional Status None recorded. Mental Status None recorded. Family History Relationship Description Onset Age of this Age Resolved Age Notes LastModified by Organization Details LastModified Time Father Arthritis 70 Not available 06/17/2023 10:26:37 Father Family history of malignant neoplasm 75 [email or web address] Not available 2022 10:26:37 Mother Arthritis 65 Not available 06/17/2023 10:26:37 Mother Hyperlipidem ia [email or web address] Not available 2022 10:26:37 Brother Family history of malignant neoplasm [email or web address] Not available 2022 10:26:37 Medical History Condition Response Coronary Artery Disease N Gout N Hyperthyroidism N MRSA N Blood Transfusion N Emphysema N COPD N Depression N Hypothyroidism N Pacemaker N Vascular Disease N Gastrointestinal Disease N Anxiety Disorder N Autoimmune disease N Arthritis N Cancer N Stroke N High Cholesterol N Neurologic Disorder N Liver Disease N Organ Transplant N Arrhythmia N Rheumatoid Arthritis N Fibromyalgia N Kidney Disease N Allergies/Hayfever N Adverse Reaction to Anesthesia N Thyroid Problems N Anemia N Brain Injury N Heart Attack (IA) N Osteopenia N Diabetes N Bleeding Disorder N Seizures/Epilepsy N AIDS/HIV N Congestive Heart Failure (CHF) N Asthma N Amputation N Reflux/GERD N Sleep Apnea N Hepatitis N Aneurysm N Heart Disease N Pulmonary Embolism N Hypertension N Osteoporosis N Gynecological HistoryNo gynecological history recorded. Obstetrics History GPAL:G 0 P 0 0 0 0 Past Encounters Encounter ID Performer Location Encounter Start Date Encounter Closed Date Diagnosis/Indication Diagnosis SNOMED-CT Code Diagnosis ICD10 Code [id number] MD REYNALDO Mittal [address] [place] [address] 02/25/2023 13:26:00 02/25/2023 14:12:52 Pain of bilateral knee joints 3859859315 23721 M25.561 M25.562 Osteoarthr itis of right knee joint 1713606743 07478 M17.11 Osteoarthr itis of left knee joint 1657794065 90961 M17.12 [id number] MD REYNALDO August [address] [place] [address] [place] [address] 05/12/2023 13:51:05 05/12/2023 15:21:21 Pain in finger of left hand 2481072717 29743 M79.645 Digital mu cous cyst of left hand 2375636181 264343 M67.442 M13.842 Arthritis of finger of left hand 2678122255 6487539 M13.842 [id number] [place] [address] 06/17/2023 10:14:42 06/17/2023 10:48:02 Digital mucous cyst of left hand 1894324272 332795 M67.442 M13.842 Arthritis of finger of left hand 1138492027 9618794 M13.842 [id number] [place] [address] 07/06/2023 11:14:08 07/06/2023 11:32:47 Arthritis of finger of left hand 7660829652 5261834 M13.842 Digital mu cous cyst of left hand 0171294209 617545 M67.442 M13.842 [id number] MD REYNALDO Mittal [address] [address] 08/17/2023 12:53:46 08/17/2023 13:26:12 Osteoarthritis of left knee joint 6733255660 61917 M17.12 Osteoarthr itis of right knee joint 2691625212 14522 M17.11 [id number] MD REYNALDO Mittal [facility] [address] [address] 02/23/2024 10:28:45 02/23/2024 11:00:27 Osteoarthritis of left knee joint 5275671530 10058 M17.12 Osteoarthr itis of right knee joint 5856882743 14299 M17.11 [id number] RONI ARGUELLO [address] [place] [address] 03/29/2024 08:53:18 03/29/2024 09:20:05 Osteoarthritis of left knee joint 2218916979 73283 M17.12 Osteoarthr itis of right knee joint 5400483178 70368 M17.11 Health Concerns Section Related Observation LastModified by Organization Detai ls LastModified Time None Recorded Concern Status LastModified by Organization Details LastModified Time None Recorded Advance Directives Directive None Recorded Payers Encounter Date Sequence Insurance Name Policy Number Policy Oden Covered Member ID Oden Member ID Guarantor Name 06/17/2023 1 [place] [facility] Audi M Ted [id number] 1 Audi Jean 06/17/2023 2 [facility] - UNICARE [id number] Audi Maddox Ted [id number] Audi Jean 07/06/2023 1 [place] [facility] Audi Jean [id number] Audi Jean 07/06/2023 2 [facility] INDEMNITY PLAN - [employer] [id number] Audi Maddox Ted [id number] Audi Jean 08/17/2023 1 [place] [facility] Audi Jean [id number] Audi Jean 08/17/2023 2 [facility] [employer] [id number] Audi Maddox Ted [id number] Audi Jean 02/23/2024 1 [place] [facility] Audi Varsha Ted [id number] 1 Audi Jean 02/23/2024 2 [facility] [employer] [id number] Audi Maddox Ted [id number] Audi Jean 03/29/2024 1 [place] [facility] Audi Jean [id number] Audi Jean 03/29/2024 2 [facility] [employer] - [employer] [id number] Audi Maddox Ted [id number] Audi Jean Notes Date Note Type Note Provider Name and Address Organization Details Recorded Time 3 text/html This is a very pleasant 73-year-old female here for follow-up excision of mucoid cyst left long finger, local dorsal flap advancement long finger. Date of surgery 06/06/2023. Patient states she is doing very well no complaints denies fevers chills flulike symptoms. Denies any warmth overlying the surgical site. She has excellent sensation she states here for wound check, suture removal postop x-ray. TALI QUEEN PA-C [address], [place], [address], [place] [facility] 06/17/2023 10:56:28 3 text/html This is a pleasant 73-year-old female who is here for follow-up for the past documented history of osteoarthritis of both knees. The patient has had viscosupplementation in the past with an objective improvement of greater than 50% after the injection. They have also had a significant reduction in the use of nonsteroidal anti-inflammatory drugs as well as other analgesics 3 months following the previous viscosupplementation injections. The patient states notable reduction in knee pain and improvement of function and activities of daily living. The patient is here for follow-up and viscosupplementation injection. TALI QUEEN PA-C [address] [facility] [address], [place], [address], [facility] [place], [place] 08/17/2023 13:30:59 4 text/html 73-year-old female presents for evaluation of bilateral knees. She is known to have osteoarthritis of both knees. She reports no new injury accident or trauma. She reports that she has had at least 1 viscosupplementation injection to the left knee in the past and several over the course of the recent few years to the right knee. She states that her injections administered in early August 2023 were highly effective at giving control of her pain lasting up until very recently. She has begun to recognize an ache and soreness at the knees that have prompted her to contact this office. TALI PAPPAS PA-C [address] [facility],[address], [place], [address], [facility] [place], [place] 02/23/2024 11:03:33 OBGyn Episode No OBEpisode recorded.
--- OUTSIDE RECORDS SUMMARY | 2024-09-26 22:04 | XMS_ITS ---
Author Name [facility] Organization Unknown History of Medication Use Medication Directions Dispensed Refills Start Date End Date Stat Monovisc 88 mg/4 mL intra-articular syringe 03/31/2024 active ibuprofen 800 mg tablet TAKE 1 TABLET BY MOUTH 3 TIMES A DAY NEEDED WITH FOOD OR MILK AFTER SURGERY FOR 14 DAYS 02/25/2024 active escitalopram 5 mg tablet TAKE 1 TABLET BY MOUTH EVERY DAY 02/25/2024 active bupropion HCl XL 300 mg 24 hr tablet, extended release TAKE 1 TABLET BY MOUTH EVERY DAY 02/25/2024 active bupropion HCl XL 150 mg 24 hr tablet, extended release TAKE 1 TABLET BY MOUTH EVERY DAY 02/25/2024 active sumatriptan 50 mg tablet TAKE 1 TABLET BY MOUTH EVERY DAY NEEDED FOR 30 DAYS 06/19/2023 active Monovisc 88 mg/4 mL intra-articular syringe Take 88 mg by intraarticular route. 08/19/2023 completed Monovisc 88 mg/4 mL intra-articular syringe Take 88 mg by intraarticular route. 05/14/2023 completed ipratropium bromide 42 mcg (0.06 %) nasal spray SPRAY 2 SPRAYS BY INTRANASAL ROUTE 3 TIMES A DAY FOR 5 DAYS 05/14/2023 completed ipratropium bromide 42 mcg (0.06 %) nasal spray SPRAY 2 SPRAYS BY INTRANASAL ROUTE 3 TIMES A DAY FOR 5 DAYS 08/19/2023 completed lidocaine (PF) 10 mg/mL (1 %) injection solution Take 2 mL by injection route. 08/19/2023 completed tizanidine 2 mg tablet TAKE 1 TABLET BY MOUTH EVERY 8 HOURS NEEDED (PAIN) FOR UP TO 10 DAYS. 08/19/2023 completed sumatriptan 50 mg tablet TAKE 1 TABLET BY MOUTH EVERY DAY NEEDED FOR 30 DAYS 08/19/2023 active sertraline 25 mg tablet 125 mg every day by oral route. 05/14/2023 active acetaminophen 300 mg-codeine 30 mg tablet TAKE 1 TO 2 TABLETS BY MOUTH EVERY 4 TO 6 HOURS NEEDED FOR PAIN DNF 06/0608/19/2023 complete d sertraline 100 mg tablet TAKE 1 TABLET BY MOUTH EVERY DAY 05/14/2023 active topiramate 25 mg tablet TAKE 1 TABLET BY MOUTH EVERY DAY 08/19/2023 active lorazepam 0.5 mg tablet TAKE 1 TABLET BY MOUTH EVERY DAY NEEDED 05/14/2023 active acetaminophen 300 mg-codeine 30 mg tablet TAKE 1 TO 2 TABLETS BY MOUTH EVERY 4 TO 6 HOURS NEEDED FOR PAIN DNF 06/0606/19/2023 complete d sertraline 100 mg tablet TAKE ONE TAB BY MOUTH WITH 25MG TAB TO MAKE A TOTAL OF 125MG DAILY 08/19/2023 active lidocaine (PF) 10 mg/mL (1 %) injection solution Take 2 mL by injection route. 05/14/2023 completed Kenalog 40 mg/mL suspension for injection Take 1 mL by injection route. 08/19/2023 completed lorazepam 0.5 mg tablet TAKE 1 TABLET BY MOUTH EVERY DAY NEEDED 08/19/2023 active topiramate 25 mg tablet 50 mg every day by oral route. 05/14/2023 active bupropion HCl SR 100 mg tablet,12 hr sustained-release TAKE 1 TABLET BY MOUTH EVERY DAY 08/19/2023 active sertraline 25 mg tablet 125 mg every day by oral route. 08/19/2023 active Kenalog 40 mg/mL suspension for injection Take 1 mL by injection route. 05/14/2023 completed tizanidine 2 mg tablet TAKE 1 TABLET BY MOUTH EVERY 8 HOURS NEEDED (PAIN) FOR UP TO 10 DAYS. 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
== END 2024-09-25 15:10 | disposition home or self-care (01) ==
PROVIDERS: PCP Internal Medicine Endocrinology, Diabetes & Metabolism; Visit Provider Orthopaedic Surgery
DX: M17.0 Bilateral primary osteoarthritis of knee (principal)
CPT/HCPCS: 99213; G2211

== ENCOUNTER 2024-09-25 16:00 | Outpatient (REF) | payer MEDICARE, OTHER, SELFPAY ==
--- NOTE | ~2024-09-25 | XR_ITS ---
EXAMINATION: XR LEFT KNEE CLINICAL INFORMATION: Pain in left knee M25.562. COMPARISON: None available TECHNIQUE: Three views of the left knee. FINDINGS: No evidence of acute fracture. No joint effusion Alignment is anatomic. Joint spaces are relatively maintained. Limited evaluation of the patellofemoral joint space on the sunrise view. No abnormal soft tissue calcification. XR/XR knee LT 3V IMPRESSION: No evidence of acute osseous abnormality. Study is assigned/presented to me for interpretation on Nov 02, 2024 Electronically signed by: Renan Burns MD 11/02/2024 10:37 AM OBDULIA
--- NOTE | ~2024-09-25 | XR_ITS ---
EXAMINATION: XR KNEE RIGHT CLINICAL INFORMATION: Pain in right knee M25.561. COMPARISON: None available TECHNIQUE: 3 views of the right knee. FINDINGS: Small marginal spurring in the medial and patellofemoral compartment. Possible mild patellofemoral joint space loss. No evidence of acute fracture or dislocation. Small effusion. No abnormal soft tissue calcification.. XR/XR knee RT 3V IMPRESSION: Mild patellofemoral and medial compartment arthritis Study is assigned/presented to me for interpretation on Nov 02, 2024 Electronically signed by: Renan Burns MD 11/02/2024 10:39 AM EST
--- OUTSIDE RECORDS SUMMARY | 2024-09-27 03:09 | XMS_ITS ---
Author Organization [facility] Address [address] [place] [address] Care Team Providers Care Filter Pulp Washer Name Role Phone Ramona Mayer Primary Care Provider Mariam Meléndez [phone] REASON FOR VISIT [employer] Coverage Encounters Encounter Location Date Provider Diagnosis [address] [address] 09/21/2024 Mariam Salter Plan Of Treatment Next Appt Details Provider Name:Mariam small, 10/02/2024 01:45:00 PM, [address] [place] [address], [phone], Provider Name:Mariam small, 10/08/2024 11:00:00 AM, [address] [place] [address], [place], [address], Provider Name:Mariam small, 10/23/2024 01:45:00 PM, [address] [place] [address], [address], Progress Notes * Jamison JEANOB:1950 (74 yo F)Acc No.[id number]:09/21/2024 Patient:?Ramona JEAN :1950???Age:74 Y???Sex:Female Address:[address] [place] [address], [facility] [place], [address] * true * Date:? Generated for Terry cervantes/Mick/Teresaitting on:?09/27/2024 03:08 AM EST
--- OUTSIDE RECORDS SUMMARY | 2024-09-27 03:09 | XMS_ITS | Patient Health Record ---
Author Organization [facility] Address [address] [place] [address] Care Team Providers Care Contact Person Name Role Phone Ramona Mayer Primary Care Provider Mariam Meléndez Unavailable [phone] Allergies Allergen (clinical drug ingredient) Drug/Non Drug [...] Problem Status W/U Status Risk Notes Problem [id number] Hallux valgus (acquired) , left foot (M20.12) Active confirmed Decision for surgery (4) Problem [id number] Hallux valgus (acquired) , right foot (M20.11) Active confirmed Problem 128735096 Hammer toe of right foot (M20.41) Active confirmed Problem 184503872 Hammer toe of left foot (M20.42) Active confirmed Decision for surgery (4) Vital Signs Blood pressure diastolic 70 mm Hg 09/05/2024 Height 5ft5in in 09/05/2024 Blood pressure systolic 130 mm Hg 09/05/2024 Weight 148 lbs 09/05/2024 BMI 24.63 kg/m2 09/05/2024 Encounters Encounter Location Date Provider Diagnosis Surgery [facility] ([facility]) [address] [place] [address] 11/16/2023 Mariam Salter Surgery [facility] ([facility]) [address] [place] [address] 09/26/2024 Mariam Salter [facility] [address] 11/02/2023 Mariam Salter Hallux valgus (acquired), left foot M20.12 ; Hammer toe of left foot M20.42 ; Pain in left toe(s) M79.675 and Bunion, left foot M21.[address] [facility] [address] 11/22/2023 Mariam Salter Hammer toe of left foot M20.42 ; Hallux valgus (acquired), left foot M20.12 and Bunion, left foot M21.612 [facility] [place] [address] 11/28/2023 Mariam Perica Hammer toe of left foot M20.42 ; Hallux valgus (acquired), left foot M20.12 and Bunion, left foot M21.[address] [facility] [address] 12/14/2023 Mariam Perica Hammer toe of left foot M20.42 ; Hallux valgus (acquired), left foot M20.12 and Bunion, left foot M21.[address] [facility] [address] 01/03/2024 Mariam Perica Hammer toe of left foot M20.42 ; Hallux valgus (acquired), left foot M20.12 ; Bunion, left foot M21.612 ; Pain in right foot M79.671 ; Pain in right ankle and joints of right foot M25.571 ; Hallux valgus (acquired), right foot M20.11 ; Hammer toe of right foot M20.41 ; Bunion, right foot M21.611 and Toe contracture, right M20.5X1 [facility] [address] 09/05/2024 Mariam Perica Hammer toe of right foot M20.41 ; Hallux valgus (acquired), right foot M20.11 ; Pain in right foot M79.671 and Toe contracture, right M20.5X1 [facility] [address] 01/03/2024 Mariam Perica [facility] [place] [address] [place] [phone] 11/11/2023 Mariam Perica [facility] [place] [address] [place] [address] 11/17/2023 [facility] [place] [address] [place] [address] 11/28/2023 Mariam Perica [facility] [address] [address] 11/30/2023 Mariam Perica [facility] [address] [address] 08/28/2024 [facility] [address] [address] 09/21/2024 Mariam Salter Assessments Encounter Date Diagnosis [...] Details Provider Name:Mariam small, 10/02/2024 01:45:00 PM, [address] [place] [address], [phone], Provider Name:Marima small, 10/08/2024 11:00:00 AM, [address] [place] [address], [phone], Provider Name:Mariam small, 10/23/2024 01:45:00 PM, [address] [place] [address], [phone], Insurance Providers Payer Name Payer Address Payer Phone Subscriber Number Group Number Insured Name Patient Relationship to Insured Coverage Start Date Coverage End Date Medicare [employer] [facility] [employer] [address] [place] [address] [phone] [id number] Ramona Jean Self - patient is the insured [employer] [address] [place] [address] [phone] [id number] Ramona Jean Self - patient is [...]
--- OUTSIDE RECORDS SUMMARY | 2024-09-27 03:09 | XMS_ITS ---
Author Organization [facility] Address [address] [place] [address] Care Team Providers Care Principal Network Architect Name Role Phone Ramona Mayer Primary Care Provider Mariam Meléndez [phone] Encounters Encounter Location Date Provider Diagnosis Surgery [facility] ([facility] [address] [place] [address] 09/26/2024 Mariam Salter Plan Of Treatment Next Appt Details Provider Name:Mariam small, 10/02/2024 01:45:00 PM, [address] [place] [address], [address], Provider Name:Mariam small, 10/08/2024 11:00:00 AM, [address] [place] [address], [address], Provider Name:Mariam small, 10/23/2024 01:45:00 PM, [address] [place] [address], [address], Progress Notes * Karla JEANeDOB:1950 (74 yo F)Acc No.[id number]:09/26/2024 Patient:?Ramona JEAN Provider:?Mariam Salter DPM :1950???Age:74 Y???Sex:Female D ate:09/26/2024 Address:[address] [place] [address], [place], [id number] Pcp:Ramona Mayer * Images: * The named appointment provid er may or may not be the originator of this progress note, and it is not deemed complete until electronically signed by the appointment provider. Sign off status: Pending * Provider:Joey Salter DPM Date:?08/2024 Generated for Terry cervantes/Mick/Teresaitting on:?09/27/2024 03:08 AM EST
--- OUTSIDE RECORDS SUMMARY | 2024-09-27 03:09 | XMS_ITS ---
Author Organization [facility] Address [address] [place] [address] Care Team Providers Care White Work Cleaner Name Role Phone Ramona Mayer Primary Care Provider Mariam Meléndez Unavailable [phone] Allergies Allergen (clinical drug ingredient) Drug/Non Drug [...] 024 Encounters Encounter Location Date Provider Diagnosis [facility] [address] [address] 09/05/2024 Mariam Salter Hammer toe of right foot M20.41 [...] ason: Provider Name:Mariam small, 10/02/2024 01:45:00 PM, [address] [place] [address], [address], Provider Name:Mariam small, 10/08/2024 11:00:00 AM, [address] [place] [address], [place], [address], Provider Name:Mariam small, 10/23/2024 01:45:00 PM, [address] [place] [address], [phone], Progress Notes * Jamison JEANOB:1950 (74 yo F)Acc No.[id number]:09/05/2024 Progress Note Patient:?Ramona JEAN Provider:?Mariam Salter DPM :1950???Age:74 Y???Sex:Female D ate:09/05/2024 Address:[address] [place] [address] [id number] Pcp:Ramona Mayer Subjective: * Chief Complaints: * [...] 14 days, 32, Refills 0.?? * Procedure Codes:?92440 X-RAY EXAM OF RIGHT FOOT 3V, Modifiers: [...] Salter DPM Date:? Generated for Terry cervantes/Mick/Teresaitting on:?09/27/2024 03:09 AM EST History and Physical Notes * HPI [...]
== END 2024-09-25 16:01 | disposition home or self-care (01) ==
LOC: HO.HOSX 16:00
PROVIDERS: Visit Provider Orthopaedic Surgery
DX: M25.561 Pain in right knee (principal); M25.562 Pain in left knee; M17.0 Bilateral primary osteoarthritis of knee
CPT/HCPCS: 73562; 99212

== ENCOUNTER 2024-11-20 10:53 | Outpatient (AMB) | payer MEDICARE, OTHER, SELFPAY ==
--- NOTE | 2024-11-20 10:58 | A.OFFVIS_ITS ---
Vital Signs 11/20/24 11:01 Height 5 ft 5 in Weight 145 lb BMI 24.1 Intake Visit Reasons: Bilateral knee pains Intake Note: Ramona is a 74 year old female who presents with complaints of progressively worsening bilateral knee pains. She describes her pains as sharp in nature. She has had cortisone injections in the past which gave her minimal relief. She has also had viscosupplementation injections which gave her good relief. She has done physical therapy exercises which aggravated her pain. She has tried anti-inflammatory medicines and Tylenol which gave her minimal relief. She wishes to hold off on surgery if at all possible. Allergies influenza virus vaccine, specific [Influenza Virus Vacc,Specific] Allergy (Unknown, Unverified 11/20/24 11:01) DOUBLE VISION FROM FLU SHOT acetaminophen [From VICODIN] Adverse Reaction (Unknown, Unverified 11/20/24 11:01) DIZZY cimetidine [From TAGAMET] Adverse Reaction (Unknown, Unverified 11/20/24 11:01) DIZZY SEASONAL ALLERGIES Allergy (Unknown, Uncoded 11/20/24 11:01) SNEEZING, ITCHY WATERY EYES From COMPAZINE Adverse Reaction (Unknown, Uncoded 11/20/24 11:01) JITTERY From TAGAMET Adverse Reaction (Unknown, Uncoded 11/20/24 11:01) DIZZY From VICODIN Adverse Reaction (Unknown, Uncoded 11/20/24 11:01) DIZZY Medication List - Last Reconciled 11/20/24 by Juan Ramon Jensen MD escitalopram oxalate 10 mg PO DAILY lorazepam 0.5 mg PO DAILY topiramate XR 25 mg PO DAILY Physical Exam Vital Signs: BMI result Body Mass Index 24.1 Const Other: Well-nourished well-developed very friendly female awake alert and oriented x3 in no acute distress Extrem Other: Bilateral lower extremity examination shows good capillary refill, no skin lesions noted, normal sensation light touch Bilateral knee examination shows minimal effusions, palpable crepitus with range of motion, pain with range motion, no instability Office Procedures AMB Joint Injection/Aspiration Joint Injection/Aspiration Primary Site: left knee Prep: site was prepped using aseptic technique Injected: 60 mg of (Durolane viscosupplementation) and 1% plain lidocaine Procedure: The patient tolerated the procedure well Coding 12964 - Large joint Procedure code (CPT) selection complete AMB Joint Injection/Aspiration Joint Injection/Aspiration Primary Site: right knee Prep: site was prepped using aseptic technique Injected: 60 mg of (Durolane viscosupplementation) and 1% plain lidocaine Procedure: The patient tolerated the procedure well Coding - Large joint Procedure code (CPT) selection complete Results Reviewed Results Reviewed: X-rays of the patient's bilateral knees taken previously show joint space narrowing, subchondral sclerosis, no acute bony abnormalities Assessment & Plan Assessment & Plan (1) Osteoarthritis of left knee: Code(s): M17.12 - Unilateral primary osteoarthritis, left knee Category: Medical (2) Osteoarthritis of right knee: Code(s): M17.11 - Unilateral primary osteoarthritis, right knee Category: Medical Plan Ms. Jean presents with bilateral knee pains due to osteoarthritis. The risks and benefits of bilateral knee Durolane viscosupplementation injections were discussed at length with the patient. The patient wished to proceed. She tolerated the injections well. She will continue with her home exercise program. She will contact me prior to her follow-up appointment in 6 months should any questions or concerns arise. Feel free to call me at any time should questions regarding her orthopedic management arise. I spent 20 minutes in reviewing the patient's records and imaging studies, seeing the patient and documenting in the medical record. Orders: Orders AMB Joint Injection/Aspiration Today M17.12 - Unilateral primary osteoarthritis, left knee AMB Joint Injection/Aspiration Today M17.11 - Unilateral primary osteoa rthritis, right knee Coding Level of Care Code Est Pt Level 3 (23230) Complex EM visit Add On G2211 Diagnoses Osteoarthritis of left knee M17.12 Osteoarthritis of right knee M17.11 CPT Codes Coding - 84077 Large joint: 24843 - Large joint ([id number]) Coding - 07598 Large joint: 27933 - Large joint ([id number])
[2024-11-20 11:01] VITALS: BMI 24.1
--- OUTSIDE RECORDS SUMMARY | 2024-11-20 11:47 | XMS_ITS | Clinical Summary ---
Author Organization [facility] Address [address] [place] [address] Care Team Providers Care Head Animal Keeper Name Role Phone Ramona Mayer MD Primary Care Provider [phone] Allergies Active Allergy Reactions Criticality Noted Date Comments Prochlorperazine 05/19/2017 Influenza Virus Vaccine Cimetidine 05/19/2017 Medications Medication Sig Dispensed Refills Start Date End Date Status SUMAtriptan (IMITREX) 25 MG tablet Take 25 mg by mouth every 2 (two) hours as needed for migraine. 0 Active sertraline (ZOLOFT) 25 MG tablet Take 25 mg by mouth daily. 0 Active loratadine (CLARITIN) 10 MG tablet Take 10 mg by mouth daily. 5 04/16/2019 Active LORazepam (ATIVAN) 0.5 MG tablet Take 0.5 mg by mouth daily as needed. for anxiety 0 06/02/2020 Active topiramate (TOPAMAX) 25 MG tablet TAKE 1 TABLET BY MOUTH EVERY DAY FOR 90 DAYS 0 12/29/2021 Active Active Problems Problem Noted Date Diagnosed Date Arthritis of knee, right 06/28/2018 Knee stiffness, right 09/07/2017 Chronic pain of right knee 05/19/2017 Family History Medical History Relation Name Comments Cancer Father Hypertension Mother Relation Name Status Comments Father Mother Social History Tobacco Use Types Packs/Day Years Used Date Smoking Tobacco: Unknown Sex and Gender Information Value Date Recorded Sex Assigned at Not on file Gender Identity Not on file Sexual Orientation Not on file Job Start Date Occupation Industry Not on file Not on file Not on file Last Filed Vital Signs Vital Sign Reading Time Taken Comments Blood Pressure - - Pulse - - Temperature - - Respiratory Rate - - Oxygen Saturation - - Inhaled Oxygen Concentration - - Weight 68 kg (150 lb) 05/26/2017 9:40 AM EDT Height 165.1 cm (5' 5 ) 05/26/2017 9:40 AM EDT Body Mass Index 24.96 05/26/2017 9:40 AM EDT Plan of Treatment Health Maintenance Due Date Last Done Comments Hepatitis C Screening 1950 Depression Screening 1962 Preventative Health Evaluation 1968 Colon Cancer Screening (Colonoscopy) 1995 Breast Cancer Screening (Mammogram) 2000 Fall Risk Assessment 2015 Osteoporosis Screening (DEXA Scan) 2015 Pneumococcal Vaccine (1 of 1 - PCV) 2015 COVID-19 Vaccine ( season) 2024 05/26/2022, 10/02/2021, 01/14/2021, Additional history exists Influenza Vaccine (#1) 2024 RSV Adult > 60+ Yrs or (1 - 1-dose 75+ series) 2025 DTap / Tdap / Td (3 - Td or Tdap) 10/08/2029 10/08/2019, 07/21/2016 Shingrix-Zoster Vaccine Completed 04/30/2021, 02/16 Hepatitis B Vaccines Aged Out No long er eligible based on patient's age to complete this topic RSV Ped < 20 months Aged Out No longe r eligible based on patient's age to complete this topic Care Teams Head Animal Keeper Relationship Specialty Start Date End Date Ramona Mayer MD PCP - General Internal Medicine 07/01/20
--- OUTSIDE RECORDS SUMMARY | 2024-11-20 11:47 | XMS_ITS | Encounter Summary ---
Author Organization [facility] Address [address] [place] [address] Care Team Providers Care Finished Hardware Erector Name Role Phone Ramona Mayer MD Primary Care Provider [phone] Reason for Visit * Reason Onset Date Comments PREOP NOTES 09/20/2024 Encounter Details Date Type Department Care Team (Late st Contact Info) Description 09/20/2024 Telephone Adult Medicine [facility] [address] [place] [address] Ramona Mayer MD [address] [place] [address] PREOP NOTES Social History Tobacco Use Types Packs/Day Years Used Date Smoking Tobacco: Former Cigarettes Q uit: 10/17/1994 Smokeless Tobacco: Never Alcohol Use Standard Drinks/Week Comments Yes 0 (1 standard drink = 0.6 oz pur e alcohol) Sex and Gender Information Value Date Recorded Sex Assigned at Not on file Gender Identity Not on file Sexual Orientation Not on file Job Start Date Occupation Industry Not on file Not on file Not on file documented as of this encounter Progress Notes * Diane Oshea - 09/26/2024 2:22 PM EST I have my own preop pool. This as been sitting for now 6 days. The surgical center stated the [place] a physical copy of her preop paperwork * Stephanie Lagunas - 09/25/2024 12:27 PM EST Patient is calling again stating that the surgeon's office is threatening to cancel her surgery because they have not received the notes that they have requested. Please send miguel. Patient's surgery is tomorrow. PREOP Notes, labs and EKG Be faxed over to their office MIGUEL. * Carlee Martinez - 09/24/2024 9:27 AM EST Herrera from [facility] called again today stating that they have not rec. Pre-op notes yet, I verfied the fax number below. Please resend the pt is having surgery on tue09/26/24 thank you * Summer Biggs - 09/20/2024 10:43 AM EST [facility] calling asking that the PREOP Notes, labs and EKG Be faxed over to their office MIGUEL. documented in this encounter Plan of Treatment Upcoming Encounters Date Type Department Care Team (Late st Contact Info) Description 01/03/2025 11:00 AM EDT Appointment Radiology Department - [address] [address] documented as of this encounter Visit Diagnoses Not on filedocumented in this encounter Care Teams Finished Hardware Erector Relationship Specialty Start Date End Date Ramona Mayer MD [address] [place] [address] PCP - General Internal Medicine 04/16/20 documented as of this encounter
--- OUTSIDE RECORDS SUMMARY | 2024-11-20 11:48 | XMS_ITS | Data Portability ---
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 Name Role Phone AUDI HARDY Primary Care Provider [phone] Assessment Encounter Date Assessment Date Assessment LastModified [...] more view 2022 023 [email or web address] [facility], [address], [place], [address], 3 15:12:14 XR, finger(s), 2 or more view 2022 023 [email or web address] [facility], [address], [address], [place], [address], 3 13:46:00 XR, knee, 4 or more view 2023 024 [facility], [address], [place], [address], 4 11:44:43 XR, knee, 4 or more view 2023 024 [facility], [address], [place], [address], 4 11:44:43 Medication Orders Monovisc 88 mg/4 mL intra-artic ular syringe 2022 023 [email or web address] [id number], [address] [place], [address], 3 15:11:34 Monovisc 88 mg/4 mL intra-artic ular syringe 2022 023 [email or web address] [id number], [address] [place], [address], 3 15:11:34 Monovisc 88 mg/4 mL intra-artic ular syringe 2023 024 [id number], [address] [place], [address], 4 09:42:33 Monovisc 88 mg/4 mL intra-artic ular syringe 2023 024 [email or web address] Not available 12:00:44 Patient TargetsNo targets recorded. Patient Instructions Encounter Date Encounter Id Patient Instructions Last Modified By Organization Details Last Modified Time 06/17/2023 [id number] x-rays with her which appear to be no acute findings. Not available 06/17/2023 10:56:11 08/17/2023 [id number] You have been pr ovided with a [...] MIGUEL. [email or web address] Not available 08/17/2023 12:58:31 02/23/2024 [id number] {{2 3 4 5 6 7 8* [...] Time Digital mucous cyst of left hand 5425526119825 101 Active 2022 Killian Harrison MD [address], [place], [address], [place] [facility] 3 15:08:41 Arthritis of finger of left hand 9795867939148 9100 Active 2022 Killian Harrison MD [address], [place], [address], [place] [facility] 3 15:08:56 Osteoarthri tis of right knee joint 9470923602532 00 Active 2023 TALI PAPPAS PA-C [address], [place], [address], [place] [facility] 4 11:02:24 Osteoarthri tis of left knee joint 1646209172344 09 Active 2022 TALI QUEEN PA-C [address], [place], [address], [place] [facility] 3 14:13:59 Problem Notes None recorded. Procedures Surgical History Date Name Laterality Status Provider Name and Address Organization Details Recorded Time 03/29/20 24 Monovisc Knee Inj w/US completed TALI PAPPAS PA-C [address], [place], [address], [place] [facility] 03/29/2024 09:17:11 08/17/20 23 Monovisc Knee Inj completed TALI QUEEN PA-C [address], [place], [address], [place] [facility] 08/17/2023 13:29:00 02/26/20 23 Monovisc Knee Inj completed TALI QUEEN PA-C [address], [place], [address], [place] [facility] 02/25/2023 14:13:40 02/26/20 23 Knee Joint/Bursa Asp & Inj completed TALI QUEEN PA-C [address], [place], [address], [place] [facility] 02/25/2023 14:13:19 Hand Surgery completed Frederic Cardenas [place] [facility] 07/06/2023 11:21:12 Gallbladder Surgery completed Rebel William [place] [facility] 02/25/2023 13:49:24 Imaging Results Imaging Date [...] Not available Not available Not available 02/25/2023 [id number] 2 RxNorm Rebel William null, [place] [facility] 3 13:47:34 3936 Compazine medicatio n Not available Not available Not available 02/25/2023 [id number] 6 RxNorm Rebel William null, [place] [facility] 3 13:47:47 Medications Name Sig Start [...] Updated DateTime 03/29/2024 165.1 cm 24.1 kg/m2 91536.89 g Mattie Amos [place] [facility] 03/29/2024 09:07:13 Date Recorded Body height Body mass index (BMI) Body weight Provider Name and Address Organization Details Last Updated DateTime 07/06/2023 165.1 cm 24.1 kg/m2 62692.89 g Frederic Cardenas [place] [facility] 07/06/2023 11:21:03 Date Recorded Body height Provider Name an d Address Organization Details Last Updated DateTime 08/17/2023 165.1 cm Bibi Lacy [place] [facility] 08/17/2023 13:13:11 Social History Question Answer Notes LastModified by Organizat ion Details LastModified Time Tobacco Smoking Status Former Smoker Rebel james, [place] [facility] 02/25/2023 13:48:34 What Is Your Level Of Alcohol Consumption? Occasional [email or web address] Information not available 02/25/2023 When Did You Quit Smoking? 16+yearssincel astcigarette [email or web address] Information not available 02/25/2023 Do You Use Any Illicit Or Recreational Drugs? No [email or web address] Information not available 02/25/2023 Do You Or Have You Ever Used Any Other Forms Of Tobacco Or Nicotine? No [email or web address] Information not available 02/25/2023 Sex: Unknown Functional [...] MRSA N Blood Transfusion N Emphysema N Depression N COPD N Hypothyroidism N Pacemaker N Vascular Disease N Gastrointestinal Disease N Anxiety Disorder N Autoimmune disease N Arthritis N Cancer N Stroke N High Cholesterol N Neurologic Disorder N Liver Disease N Organ Transplant N Rheumatoid Arthritis N Arrhythmia N Fibromyalgia N Kidney Disease N Allergies/Hayfever N Adverse Reaction to Anesthesia N Thyroid Problems N Anemia N Brain Injury N Heart Attack ([place]) N Osteopenia N Diabetes N Bleeding Disorder [...] Diagnosis/Indication Diagnosis SNOMED-CT Code Diagnosis ICD10 Code Diagnosis Note [id number] MD REYNALDO Mittal [address] [address] 02/25/2023 13:26:00 02/25/2023 14:12:52 Pain of bilateral knee joints 6658746668 15932 M25.561 M25.562 Osteoarthr itis of right knee joint 5014176335 57285 M17.11 Osteoarthr itis of left knee joint 5074441993 90830 M17.12 [id number] MD REYNALDO August [address] [place] [address] [place] [address] 05/12/2023 13:51:05 05/12/2023 15:21:21 Pain in finger of left hand 5558282560 75491 M79.645 Digital mu cous cyst of left hand 9352316595 616671 M67.442 M13.842 Left long finger Arthritis of finger of left hand 5152166875 2697265 M13.842 DIP joint left long finger [id number] [place] [address] 06/17/2023 10:14:42 06/17/2023 10:48:02 Digital mucous cyst of left hand 0519753067 207002 M67.442 M13.842 Arthritis of finger of left hand 4796395066 8248197 M13.842 [id number] Killian Harrison MD [address] [address] 07/06/2023 11:14:08 07/06/2023 11:32:47 Arthritis of finger of left hand 6869579795 8298448 M13.842 DIP joint left long finger Digital mu cous cyst of left hand 4248823388 403718 M67.442 M13.842 Left long finger [id number] MD REYNALDO Mittal [address] [place] [address] [place] [address] 08/17/2023 12:53:46 08/17/2023 13:26:12 Osteoarthritis of left knee joint 1063391100 79061 M17.12 Osteoarthr itis of right knee joint 3385101529 M17.11 [id number] MD REYNALDO Mittal [address] [place] [address] 02/23/2024 10:28:45 02/23/2024 11:00:27 Osteoarthritis of left knee joint 1313641019 85508 M17.12 Osteoarthr itis of right knee joint 7386842004 M17.11 Additional diagnosis detail: Primary osteoarthr itis of right knee [id number] RONI ARGUELLO [address] [place] [address] 03/29/2024 08:53:18 03/29/2024 09:20:05 Osteoarthritis of left knee joint 3358239205 40526 M17.12 Osteoarthr itis of right knee joint 1203782183 71279 M17.11 Additional diagnosis detail: Primary osteoarthr itis of right knee Health Concerns Section Related Observation LastModified by Organization Detai ls LastModified Time None Recorded Concern Status LastModified by Organization Details LastModified Time None Recorded Advance Directives Directive None Recorded Payers Encounter Date Sequence Insurance Name Policy Number Policy Oden Covered Member ID Oden Member ID Guarantor Name 06/17/2023 1 [place] [employer] Audi M Ted [id number] Audi Jean 06/17/2023 2 COMMONWE[employer] INDEMNITY PLAN - UNICARE [id number] Audi Maddox Ted [id number] Audi Jean 07/06/2023 1 [place] [facility] G[facility]MENT SERVICES Audi Varsha Ted [id number] [employer] Jean 07/06/2023 2 COMMONWEALTH INDEMNITY PLAN - UNICARE [id number] Audi M Ted [id number] Audi Jean 08/17/2023 1 [place] [facility] [employer] Audi M Ted [id number] Audi Jean 08/17/2023 2 COMMONWEALTH INDEMNITY PLAN - UNIC[employer] [id number] Audi M Ted [id number] Audi Jean 02/23/2024 1 [place] [facility] G[employer]MENT SERVICES Audi Varsha Ted [id number] Audi Jean 02/23/2024 2 COMMONWEALTH INDEMNITY PLAN - [employer] [id number] Audi Jean [id number] Audi Jean 03/29/2024 1 [place] [employer] Audi Jean [id number] Audi Jean 03/29/2024 2 [employer] INDEMNITY PLAN - [employer] [id number] Audi Jean [id number] Audi Jean Notes Date Note Type Note [...] TALI QUEEN PA-C [address], [place], [address], [place] [facility] 06/17/2023 10:56:28 3 text/html This is [...] and viscosupplementation injection. TALI QUEEN PA-C 299 [facility] [address], [place], [address], [facility] 08/17/2023 13:30:59 4 text/html 73-year-old female [...] contact this office. TALI PAPPAS PA-C 299 [facility],[address], [place], [address], [facility] - [facility] 02/23/2024 11:03:33 OBGyn Episode No OBEpisode recorded.
--- OUTSIDE RECORDS SUMMARY | 2024-11-20 11:48 | XMS_ITS | Clinical Summary ---
Author Organization [address] Address [address] [place] [address] Phone Care Team Providers Care Student Success Coach Name Role Phone Ramona Mayer MD Primary Care Provider [phone] Allergies Active Allergy Reactions Criticality Noted Date Comments Cimetidine Other 01/29/2010 H/A's Dizziness Codeine Nausea And Vomiting 09/02/2005 Hydrocodone Bitartrate 05/22/2012 Room spinning Prochlorperazine Other High 09/02/2005 hebegbees Medications Medication Sig Dispensed Refills Start Date End Date Status topiramate (TOPAMAX) 50 mg tablet Take 1 tablet (50 mg total) by mouth 1 (one) time each day. Active LORazepam (ATIVAN) 0.5 mg tablet 1 po QD prn anxiety or insomnia 08/18/2021 Active Lexapro 5 mg tablet Take 2 tablets (10 mg total) by mouth 1 (one) time each day. Active Active Problems Problem Noted Date Diagnosed Date Hyperlipidemia 08/12/2022 Osteopenia 05/07/2022 Thyroid nodule 09/19/2020 Arthritis of knee, right 06/28/2018 Panic disorder 03/01/2014 Atrophic vaginitis 08/20/2011 Migraine without aura 12/15/2006 Allergic rhinitis 12/30/2005 Encounters Date Type Department Care Team Description 11/07/2024 12:42 PM EST - 11/07/2024 11:59 PM EST Hospital Encounter Radiology Department - [address] [phone] Thyroid nodule Discharge Disposition: Home or Self Care 09/20/2024 Telephone Adult Medicine [id number] [place] [phone] Rmaona Mayer MD PREOP NOTES 09/17/2024 10:00 AM EST Consult Adult Medicine [address] [phone] Ramona Mayer MD Preop cardiovascular exam (Primary Dx); Other hyperlipidemia; Osteopenia, unspecified location; Panic disorder; Thyroid nodule; Bunion from Last 3 Months Immunizations Name Administration Dates Next Due Influenza trivalent, 0.5mL ( Fluad) 65yo and older 07/24/2023 Influenza, Unspecified 08/11/2022 Moderna Covid-19 Bivalent, O riginal + Ba.1 (Non-US Tradename Spikevax Bivalent) 10/01/2022 Pfizer (ages 12 & older) Biv alent, COVID-19 07/24/2023 Pfizer SARS-CoV-2 COVID-19, mRNA, LNP-S, preservative free 05/26/2022,10/02/2021,01/14/2021,2020 Pneumococcal conjugate 20 va lent (Prevnar 20, PCV 20) 2mo and older 08/11/2022 RSV, bivalent, protein subun it RSVpreF, 0.5mL, Preservative Free (Arexvy) 60yo and older 08/13/2023 Td Tetanus diptheria (Tdvax) 7yo and older 10/17/2004 Tdap Tetanus diptheria acell ular pertussis (Boostrix; Adacel) 7yo and older 10/08/2019,07/21/2016 Zoster Live 03/15/2012 Zoster recombinant (Shingrix ) 19yo and older 04/30/2021,02/16/2021 Surgical History Surgery Date Site/Laterality Comments BUNIONECTOMY MULTIPLE TOOTH EXTRACTIONS COLONOSCOPY 08/21/2007 Negative UPPER GASTROINTESTINAL ENDOSCOPY 08/21/2007 erosive gastritis, path: See problem list. FLEXIBLE SIGMOIDOSCOPY 12/26/2001 : Screening Flex Sig, repeat 5 years COLONOSCOPY 01/26/2018 : Negative screening examination. DILATION AND CURETTAGE OF UTERUS 10/17/2003 submucosal fibroid Medical History Medical History Date Comments Migraine without aura, witho ut mention of intractable migraine without mention of status migrainosus DX:Migraine with out aura, without mention of intractable migraine without mention of status migrainosus; COMMENT: followed by neurologist on topiramate Personal history of peptic u lcer disease DX:Personal history of pepti c ulcer disease Allergic rhinitis, cause unspecified DX:Allergic rhinitis, cause unspecified Esophageal reflux 07/15/2007 DX:Esophageal reflux; COMMENT: Normal esophagus on EGD 08/21/2007 Other specified gastritis wi thout mention of hemorrhage 08/21/2007 DX:Other specified gastritis without mention of hemorrhage; COMMENT: Erosive gastritis at endoscopy 08/21/2007, biopsies obtained. Special screening for malign ant neoplasms, colon 08/21/2007 DX:Special screening for mal ignant neoplasms, colon; COMMENT: Negative colonoscopy 08/21/2007, no colon cancer screening needed for 10 years. Panic disorder 03/01/2014 DX:Panic disorde r Osteopenia 05/07/2022 DX:Osteopenia Migraine without aura 12/15/2006 DX:Migrain e without aura; COMMENT: Only with menses, stopped with menopause. IMO update Shingles 11/30/2012 DX:StitcherAdsgles; Sovicell MENT: 2011 History of peptic ulcer disease 12/15/2006 DX:History of peptic ulcer disease; COMMENT: No evidence H. Pylori infection on gastric biopsy 08/21/2007. Family History Medical History Relation Name Comments Leukemia Aunt 1 leukemia, mater nal Breast cancer Aunt 2 p aunt Prostate cancer Father DJD Arthritis Mother CVA, dementia Colon cancer Mother's side cousin Breast cancer Other m.cousin dx 45 Relation Name Status Comments Aunt 1 Aunt 2 p aunt Father Mother Mother's side Other m.cousin dx 45 Social History Tobacco Use Types Packs/Day Years Used Date Smoking Tobacco: Former Cigarettes Q uit: 10/17/1994 Smokeless Tobacco: Never Tobacco Cessation:Counseling Given: Not Answered Alcohol Use Standard Drinks/Week Comments Yes 0 (1 standard drink = 0.6 oz pur e alcohol) Sex and Gender Information Value Date Recorded Sex Assigned at Not on file Gender Identity Not on file Sexual Orientation Not on file Job Start Date Occupation Industry Not on file Not on file Not on file Obstetrics History Last Filed Vital Signs Vital Sign Reading Time Taken Comments Blood Pressure 118/58 09/17/2024 10:10 AM EST Pulse 93 09/17/2024 10:10 AM EST Temperature 36.3 ??C (97.4 ??F) 09/17/2024 10:[address] Respiratory Rate 14 09/17/2024 10:10 AM EST Oxygen Saturation 99% 09/17/2024 10:10 AM EST Inhaled Oxygen Concentration - - Weight 69.1 kg (152 lb 6.4 oz) 09/17/2024 10:10 AM EST Height 165.1 cm (5' 5 ) 09/17/2024 10:10 AM EST Body Mass Index 25.36 09/17/2024 10:10 AM EST Plan of Treatment Upcoming Encounters Date Type Department Care Team (Late st Contact Info) Description 01/03/2025 11:00 AM EDT Appointment Radiology Department [address] [phone] Health Maintenance Due Date Last Done Comments Depression Screening 09/23/2022 Falls Risk Assessment 09/23/2022 Medicare Annual Wellness Visit 09/23/2022 Social Influencers of Health Screening 09/23/2022 Breast Cancer Screening 12/21/2025 12/22/19, 12/22/2023, 12/17/2022, Additional history exists Cholesterol Screening (Lipid Panel) 05/10/2027 05/10/2022 Colorectal Cancer Screening: Colonoscopy 01/27/2028 01/26/2018, 01/26/2018 DTaP,Tdap,and Td Vaccines (4 - Td or Tdap) 10/08/2029 10/08/2019, 07/21/2016, 10/17/2004 Osteoporosis Screening (Bone Density Screening) 07/01/2037 07/01/2022, 03/21/2019 Hepatitis C Screening Completed 10/15/2013 Zoster Vaccines Completed 04/30/2021, 05/12/2020, 03/15/2012 Pneumococcal Vaccine: 65+ Years Completed 08/11/2022 RSV Immunization Patients 60+ Years Old Completed 08/13/2023 COVID-19 Vaccine Completed 07/11/2024, 05/2023, 07/23/2023, Additional history exists Influenza Vaccine Completed 07/11/2024, , 07/23/2023, Additional history exists HIB Vaccines Aged Out No longer eligi ble based on patient's age to complete this topic HPV Vaccines Aged Out No longer eligi ble based on patient's age to complete this topic Hepatitis A Vaccines Aged Out No long er eligible based on patient's age to complete this topic Hepatitis B Vaccines Aged Out No long er eligible based on patient's age to complete this topic IPV Vaccines Aged Out No longer eligi ble based on patient's age to complete this topic MMR Vaccines Aged Out No longer eligi ble based on patient's age to complete this topic Meningococcal ACWY Vaccine Aged Out N o longer eligible based on patient's age to complete this topic RSV Immunization Patients Under 20 months Aged Out No longer eligible based on patient's age to complete this topic Varicella Vaccines Aged Out No longer eligible based on patient's age to complete this topic Procedures Procedure Name Priority Date/Time Associated Diagnosis Comments US HEAD NECK SOFT TISSUE Routine 11/07/2024 1:02 PM EST Thyroid nodule CBC WITH AUTO DIFFERENTIAL Routine 09/17/2024 9:02 AM EST Hyperlipidemia Preop examination BASIC METABOLIC PANEL Routine 09/17/2024 9:02 AM EST Hyperlipidemia Preop examination CBC AND DIFFERENTIAL Routine 09/17/2024 9:02 AM EST Hyperlipidemia Preop examination SCREENING MAMMOGRAPHY BI 2-VIEW BREAST INC CAD Routine 12/22/2023 2:16 PM EST Encounter for screening mammogram for malignant neoplasm of breast DXA BONE DENSITY STUDY 1+ SITS AXIAL SKEL Routine 07/01/2022 2:10 PM EDT Other specified disorders of bone density and structure, other site LIPID PANEL Routine 05/10/2022 COLONOSCOPY Routine 01/26/2018 HEPATITIS C SCREENING Routine 10/15/2013 from Last 3 Months or Most Recently Relevant to Health Maintenance Results * US Head Neck Soft Tissue (11/07/2024 1:02 PM EST) Anatomical Region Laterality Modality Head and Neck Ultrasound 11/07/2024 4:53 PM EST Impressions 11/07/2024 5:00 PM EST Nodules as above. -------- FINAL REPORT -------- Dictated By: Nash Lujan Dictated Date: 11/07/2024 16:53 ET Assigned Physician: Nash Lujan Reviewed and Electronically Signed By: Nash Lujan Signed Date: 11/07/2024 17:00 ET Workstation ID: [id number] Transcribed By: Self Edit Transcribed Date: 11/07/2024 16:53 ET Narrative 11/07/2024 5:00 PM EST Exam: Thyroid ultrasound. HISTORY: thyroid nodule COMPARISON: Ultrasound thyroid from 11/04/2023 Technique: Grayscale and Doppler images of the thyroid gland were obtained. FINDINGS: The thyroid gland is normal in size. The right lobe measures 4.4 x 2.1 x 1.4 cm. The left lobe measures 5.0 x 2.1 x 1.7 cm. The thyroid isthmus is normal in size and measures 0.3 cm. The thyroid parenchyma is heterogenous Right Lobe: Midpole--0.8 x 0.9 x 0.4 cm cystic nodule, grossly stable from prior exam Midpole--0.7 x 1.0 x 0.8 cm isoechoic heterogeneous solid and cystic nodule, minimally increased from prior exam Midpole--0.5 x 0.8 x 0.6 cm isoechoic solid heterogeneous nodule, not significantly changed Left Lobe: Midpole--1.4 x 2.0 x 1.0 cm isoechoic solid heterogeneous nodule, grossly stable Midpole--0.9 x 1.4 x 0.8 cm echogenic solid heterogeneous nodule, slightly smaller from prior exam Procedure Note Nash Lujan MD - 11/07/2024 Exam: Thyroid ultrasound. HISTORY: thyroid nodule COMPARISON: Ultrasound thyroid from 11/04/2023 Technique: Grayscale and Doppler images of the thyroid gland wereobtained. FINDINGS: The thyroid gland is normal in size. The right lobe measures 4.4 x 2.1 x1.4 cm. The left lobe measures 5.0 x 2.1 x 1.7 cm. The thyroid isthmus isnormal in size and measures 0.3 cm. The thyroid parenchyma isheterogenous Right Lobe: Midpole--0.8 x 0.9 x 0.4 cm cystic nodule, grossly stable from priorexam Midpole--0.7 x 1.0 x 0.8 cm isoechoic heterogeneous solid and cysticnodule, minimally increased from prior exam Midpole--0.5 x 0.8 x 0.6 cm isoechoic solid heterogeneous nodule, notsignificantly changed Left Lobe: Midpole--1.4 x 2.0 x 1.0 cm isoechoic solid heterogeneous nodule, grosslystable Midpole--0.9 x 1.4 x 0.8 cm echogenic solid heterogeneous nodule, slightlysmaller from prior exam IMPRESSION: Nodules as above. -------- FINAL REPORT -------- Dictated By: Nash Lujan Dictated Date: 11/07/2024 16:53 ET Assigned Physician: Nash Lujan Reviewed and Electronically Signed By: Nash Lujan Signed Date: 11/07/2024 17:00 ET Workstation ID: [id number] Transcribed By: Self Edit Transcribed Date: 11/07/2024 16:53 ET Ramona Mayer MD [facility] [place] PROCEDURES * (ABNORMAL) CBC auto differential (09/17/2024 9:02 AM EST) WBC 5.3 4.8 - 10.8 K/mcL LAB HEMETOLOGY METHOD 09/17/2024 9:59 AM EST [facility] RBC 4.00 3.80 - 4.80 M/mcL LAB HEMETOLOGY METHOD 09/17/2024 9:59 AM EST [facility] Hemoglobin 12.8 11.5 - 16.0 g/dL LAB HEMETOLOGY METHOD 09/17/2024 9:59 AM EST [facility] Hematocrit 39.5 35.0 - 47.0 % LAB HEMETOLOGY METHOD 09/17/2024 9:59 AM [facility] MCV 98.5(H) 79.0 - 98.0 FL LAB HEMETOLOGY METHOD 09/17/2024 9:59 AM [facility] MCH 31.9 27.0 - 32.0 pcg LAB HEMETOLOGY METHOD 09/17/2024 9:59 AM [facility] MCHC 32.4 32.0 - 37.0 g/dL LAB HEMETOLOGY METHOD 09/17/2024 9:59 AM [facility] RDW 14.1 11.0 - 15.0 % LAB HEMETOLOGY METHOD 09/17/2024 9:59 AM [facility] Platelets 327 130 - 400 K/mcL LAB HEMETOLOGY METHOD 09/17/2024 9:59 AM [facility] MPV 10.0 7.0 - 11.0 FL LAB HEMETOLOGY METHOD 09/17/2024 9:59 AM [facility] NRBC 0.0 <1.0 % LAB HEMETOLOGY METHOD 09/17/2024 9:59 AM [facility] NRBC Absolute 0.00 <0.10 K/mcL LAB HEMETOLOGY METHOD 09/17/2024 9:59 AM [facility] Neutrophils Relative 46.7 % LAB HEMETOLOGY METHOD 09/17/2024 9:59 AM [facility] Lymphocytes Relative 43.5 % LAB HEMETOLOGY METHOD 09/17/2024 9:59 AM [facility] Monocytes Relative 6.1 % LAB HEMETOLOGY METHOD 09/17/2024 9:59 AM [facility] Eosinophils Relative 2.5 % LAB HEMETOLOGY METHOD 09/17/2024 9:59 AM [facility] Basophils Relative 1.0 % LAB HEMETOLOGY METHOD 09/17/2024 9:59 AM EST [facility] Immature Granulocytes Relative 0.2 % LAB HEMETOLOGY METHOD 09/17/2024 9:59 AM [facility] Neutrophils Absolute 2.46 1.50 - 7.00 K/mcL LAB HEMETOLOGY METHOD 09/17/2024 9:59 AM [facility] Lymphocytes Absolute 2.29 1.00 - 5.00 K/mcL LAB HEMETOLOGY METHOD 09/17/2024 9:59 AM [facility] Monocytes Absolute 0.32 0.20 - 1.00 K/mcL LAB HEMETOLOGY METHOD 09/17/2024 9:59 AM [facility] Eosinophils Absolute 0.13 0.00 - 0.50 K/mcL LAB HEMETOLOGY METHOD 09/17/2024 9:59 AM [facility] Basophils Absolute 0.05 0.00 - 0.20 K/mcL LAB HEMETOLOGY METHOD 09/17/2024 9:59 AM [facility] Immature Granulocytes Absolute 0.01 0.00 - 0.03 K/mcL LAB HEMETOLOGY METHOD 09/17/2024 9:59 AM [facility] Blood Venous blood specimen / Unknown Venipuncture / Unknown 09/17/2024 9:02 AM EST 09/17/2024 9:02 AM EST Ramona Mayer MD LAB BLOOD ORDERABLES [facility] [address] [place] [address], * Basic metabolic panel (09/17/2024 9:02 AM EST) Sodium 141 133 - 145 mmol/L LAB CHEMISTRY METHOD 09/17/2024 12:45 PM EST [facility] Potassium 3.7 3.5 - 5.5 mmol/L LAB CHEMISTRY METHOD 09/17/2024 12:45 PM [facility] Chloride 110 96 - 110 mmol/L LAB CHEMISTRY METHOD 09/17/2024 12:45 PM [facility] CO2 21 21 - 32 mmol/L LAB CHEMISTRY METHOD 09/17/2024 12:45 PM [facility] Anion Gap 10 3 - 11 LAB CHEMISTRY METHOD 09/17/2024 12:45 PM [facility] Glucose 84 70 - 100 mg/dL LAB CHEMISTRY METHOD 09/17/2024 12:45 PM [facility] BUN 16 5 - 25 mg/dL LAB CHEMISTRY METHOD 09/17/2024 12:45 PM [facility] Creatinine 0.88 0.50 - 1.10 mg/dL LAB CHEMISTRY METHOD 09/17/2024 12:45 PM [facility] eGFR 69 >=60 mL/min/1. 73m2 LAB CHEMISTRY METHOD 09/17/2024 12:45 PM [facility] Comment:Calculation based on the??Chronic Kidney Disease Epidemiology Collaboration (CKD-EPI) equation refit??without adjustment for race. BUN/Creatinine Ratio 18.2 LAB CHEMISTRY METHOD 09/17/2024 12:45 PM [facility] Calcium 9.8 8.5 - 10.5 mg/dL LAB CHEMISTRY METHOD 09/17/2024 12:45 PM [facility] Blood Venous blood specimen / Unknown Venipuncture / Unknown 09/17/2024 9:02 AM EST 09/17/2024 9:02 AM EST Ramona Mayer MD LAB BLOOD ORDERABLES [facility] [address] [place] [address], * SCREENING MAMMOGRAPHY BI 2-VIEW BREAST INC CAD (12/22/2023 2:16 PM EST) Anatomical Region Laterality Modality Radiographic Lillian ging 12/17/2022 2:31 PM EST Narrative 12/23/2023 12:17 PM EST This is a summary report. The complete report is available in the patient's medical record. If you cannot access the medical record, please contact the sending organization for a detailed fax or copy. Exam: Screening mammogram Findings: Digital bilateral full-field screening mammography is performed with tomosynthesis and interpreted with the aid of computer-aided detection. ??Comparison is made with 12/17/2022 and as far back as 10/22/2019. Breast parenchyma is composed of scattered fibroglandular densities. ??No new suspicious mass, architectural distortion, or suspicious calcifications. Impression: No mammographic evidence of malignancy. BI-RADS 1 - negative Procedure Note Aiyana Corona MD - 06/04/2024 This is a summary report. The complete report is available in thepatient's medical record. If you cannot access the medical record, pleasecontact the sending organization for a detailed fax or copy. Exam: Screening mammogram Findings: Digital bilateral full-field screening mammography is performedwith tomosynthesis and interpreted with the aid of computer-aideddetection. Comparison is made with 12/17/2022 and as far back 10/22/2019. Breast parenchyma is composed of scattered fibroglandular densities. Nonew suspicious mass, architectural distortion, or suspiciouscalcifications. Impression: No mammographic evidence of malignancy. BI-RADS 1 - negative Yady Yanes MD IMG XR PROCEDURE S * DXA BONE DENSITY STUDY 1+ SITS AXIAL SKEL (07/01/2022 2:10 PM EDT) Anatomical Region Laterality Modality Bone Densitometr y 05/10/2022 10:2 1 AM EDT Narrative 07/02/2022 9:37 AM EDT Clinical history: other(see comments) Scans of the lumbar spine and hips were performed on a [employer] fan beam bone densitometer. ? Bone mineral density measurements and associated T and Z scores respectively are as follows: Lumbar Spine: L1-L4 BMD: 0.965 g/cm2 ? T-Score: -0.7 ? Z-Score: 1.5 Compared with the prior study dated 03/21/2019, the BMD reading has increased which is not statistically significant Left Proximal Femur: Neck BMD: 0.820 g/cm2 ? T-Score: -0.3 ?? Z-Score: 1.7 Total BMD: 0.842 g/cm2 ? T-Score: -0.8 ?Z-Score: 0.8 Compared with the prior study the mean BMD reading in the total left hip has decreased which is statistically significant Compared with standards for the young adult, lowest measured bone density places the patient in the W.H.O. normal range. IMPRESSION: IMPRESSION: Normal bone density. The NOF guidelines recommend that FDA approved medical therapies be considered in postmenopausal women and men age >50 years with a: i. Hip or vertebral (clinical or morphometric) fracture ii. T score of < -2.5 at the spine or hip iii. 10 year fracture probability by FRAX of >3% for hip fracture, or >20% for major osteoporotic fracture PLEASE NOTE: ?? W.H.O. classification is based on lowest measured density at the spine, femoral neck, or total hip.This classification has prognostic significance when applied to post menopausal women and older men. 1) ??The World Health Organization defines low BMD as follows: ?T-score ? Normal ? at or > -1 Osteopenia ? < -1 and ??> - 2.5 Osteoporosis ? at or < -2.5 without fractures Established osteoporosis ? < -2.5 with fractures Procedure Note Nash Lujan MD - 10/05/2022 Clinical history: other(see comments) Scans of the lumbar spine and hips were performed on a [employer] beam bone densitometer. Bone mineral density measurements and associated T and Z scoresrespectively are as follows: Lumbar Spine: L1-L4 BMD: 0.965 g/cm2 T-Score: -0.7 Z-Score: 1.5 Compared with the prior study dated 03/21/2019, the BMD reading hasincreased which is not statistically significant Left Proximal Femur: Neck BMD: 0.820 g/cm2 T-Score: -0.3 Z-Score: 1.7 Total BMD: 0.842 g/cm2 T-Score: -0.8 Z-Score: 0.8 Compared with the prior study the mean BMD reading in the total left hiphas decreased which is statistically significant Compared with standards for the young adult, lowest measured bone densityplaces the patient in the W.H.O. normal range. IMPRESSION: IMPRESSION: Normal bone density. The NOF guidelines recommend that FDA approved medical therapies beconsidered in postmenopausal women and men age >50 years with a: i. Hip or vertebral (clinical or morphometric) fracture ii. T score of < -2.5 at the spine or hip iii. 10 year fracture probability by FRAX of >3% for hip fracture, or >20%for major osteoporotic fracture PLEASE NOTE: W.H.O. classification is based on lowest measured density at the spine,femoral neck, or total hip.This classification has prognostic significance when applied to postmenopausal women and older men. 1) The World Health Organization defines low BMD as follows: T-score Normal at or > -1 Osteopenia < -1 and > -2.5 Osteoporosis at or < -2.5 withoutfractures Established osteoporosis < -2.5 with fractures aNt Byrd MD IM DXA PROCEDURES * (ABNORMAL) Lipid panel (05/10/2022) LDL/HDL Ratio 3 0 - 4 Triglycerides 78 0 - 150 mg/dL Cholesterol 219(A) 0 - 200 mg/dL HDL 74 40 mg/dL LDL Cholesterol 130(A) 0 - 100 mg/dL Blood Venous blood specimen / Unknown Historical Provider LAB BLOOD ORDERAB LES * Colonoscopy (01/26/2018) Colonoscopy no interpretation , abstracted Anatomical Region Laterality Modality Other Historical Provider MD BRENNAN TALAVERA E * Hepatitis C Screening (10/15/2013) Hepatitis C Screening abstracted Historical Provider MD BRENNAN Breaux from Last 3 Months or Most Recently Relevant to Health Maintenance Care Teams Student Success Coach Relationship Specialty Start Date End Date Ramona Mayer MD [address] [place] [address] PCP - General Internal Medicine 04/16/20
--- OUTSIDE RECORDS SUMMARY | 2024-11-20 11:48 | XMS_ITS | Encounter Summary ---
Author Organization [facility] Address [address] [place] [address] Care Team Providers Care Custodian Name Role Phone Ramona Mayer MD Primary Care Provider [phone] Reason for Referral * Imaging (Routine) - Closed Specialty Diagnoses / Procedures Referred By Adalberto love Referred To Contact Radiology Diagnoses Thyroid nodule Procedures US Head Neck Soft Tissue Ramona Mayer MD [address] [place] [address] Referral ID Status Reason Start Date Expiration Date Visits Re quested Visits Authorized [id number] Closed 09/17/2024 09/17/2025 1 1 Reason for Visit * Imaging (Routine) - Closed Specialty Diagnoses / Procedures Referred By Adalberto love Referred To Contact Radiology Diagnoses Thyroid nodule Procedures US Head Neck Soft Tissue Ramona Mayer MD [address] [place] [address] Referral ID Status Reason Start Date Expiration Date Visits Re quested Visits Authorized [id number] Closed 09/17/2024 09/17/2025 1 1 Encounter Details Date Type Department Care Team (Latest Contact Info) Description 11/07/2024 12:42 PM EST - 11/07/2024 11:59 PM EST Hospital Encounter Radiology Department - [address] [phone] Thyroid nodule Discharge Disposition: Home or Self Care Social History Tobacco Use Types Packs/Day Years [...] on file documented as of this encounter Medications at Time of Discharge Medication Sig Dispensed Refills Start Date End Date Lexapro 5 mg tablet Take 2 tablets (10 mg total) by mouth 1 (one) time each day. LORazepam (ATIVAN) 0.5 mg tablet 1 po QD prn anxiety or insomnia 08/18/2021 topiramate (TOPAMAX) 50 mg tablet Take 1 tablet (50 mg total) by mouth 1 (one) time each day. documented as of this encounter Discharge Disposition Disposition Code Departure Means Destination Home or Self Care documented in this encounter Plan of Treatment Upcoming Encounters Date Type Department Care Team ([facility] Contact Info) Description 01/03/2025 11:00 AM EDT Appointment Radiology Department - [address] [phone] documented as of this encounter Procedures Procedure Name Priority Date/Time Associated Diagnosis Comments US HEAD NECK SOFT TISSUE Routine 11/07/2024 1:02 PM EST Thyroid nodule documented in this encounter Results * US Head Neck Soft Tissue (11/07/2024 1:02 PM EST) Anatomical Region Laterality Modality Head and Neck Ultrasound 11/07/2024 4:53 PM EST Impressions 11/07/2024 5:00 PM EST Nodules as above. -------- FINAL REPORT -------- Dictated By: Nash Lujan Dictated Date: 11/07/2024 16:53 ET Assigned Physician: Nash Luajn Reviewed and Electronically Signed By: Nash Lujan Signed Date: 11/07/2024 17:00 ET Workstation ID: [id number] Transcribed By: Self Edit Transcribed Date: 11/07/2024 [...] Signed Date: 11/07/2024 17:00 ET Workstation ID: [id number] Transcribed By: Self Edit Transcribed Date: 11/07/2024 16:53 ET Ramona Mayer MD IMG US PROCEDURES documented in this encounter Visit Diagnoses Diagnosis Thyroid nodule Nontoxic uninodular goiter Encounter for screening mammogram for breast cancer documented in this encounter Care Teams Custodian Relationship Specialty Start Date End Date Ramona Mayer MD [address] [place] [address] PCP - General Internal Medicine 04/16/20 documented as of this encounter
== END 2024-11-20 11:39 | disposition home or self-care (01) ==
PROVIDERS: PCP Internal Medicine Endocrinology, Diabetes & Metabolism; Visit Provider Orthopaedic Surgery
DX: M17.0 Bilateral primary osteoarthritis of knee (principal)
CPT/HCPCS: 20610; 99213

== ENCOUNTER → 2024-11-20 10:53 | Outpatient (BNVA) | payer MEDICARE, OTHER, SELFPAY | PROVIDERS: PCP Internal Medicine Endocrinology, Diabetes & Metabolism; Visit Provider Orthopaedic Surgery | DX: M17.0 Bilateral primary osteoarthritis of knee (principal) | CPT/HCPCS: 20610; 99212; J2003; J7318 ==

== ENCOUNTER 2025-05-01 11:33 | Outpatient (AMB) | payer MEDICARE, OTHER, SELFPAY ==
--- NOTE | 2025-05-01 11:55 | A.OFFVIS_ITS ---
Vital Signs 05/01/25 11:55 Height 5 ft 5 in Intake Visit Reasons: Migraine Allergies influenza virus vaccine, specific (Influenza Virus Vacc,Specific) Allergy (Unknown, Unverified 05/01/25 11:59) DOUBLE VISION FROM FLU SHOT acetaminophen (From VICODIN) Adverse Reaction (Unknown, Unverified 05/01/25 11:59) DIZZY cimetidine (From TAGAMET) Adverse Reaction (Unknown, Unverified 05/01/25 11:59) DIZZY SEASONAL ALLERGIES Allergy (Unknown, Uncoded 05/01/25 11:59) SNEEZING, ITCHY WATERY EYES From COMPAZINE Adverse Reaction (Unknown, Uncoded 05/01/25 11:59) JITTERY From TAGAMET Adverse Reaction (Unknown, Uncoded 05/01/25 11:59) DIZZY From VICODIN Adverse Reaction (Unknown, Uncoded 05/01/25 11:59) DIZZY Medication List - Last Reconciled 05/01/25 by Liliana Coates CNP escitalopram oxalate 10 mg PO DAILY lorazepam 0.5 mg PO DAILY sumatriptan succinate 50 mg PO DAILY PRN topiramate 25 mg PO BID 90 days HPI Comments Details: 75-year-old woman with migraine, tinnitus and anxiety. She was doing okay. Migraines were controlled with topiramate. She had two bad migraines in the last 6 months which were triggered by change in barometric pressure. Sumatriptan as needed helps. Tinnitus comes and goes, worse with stress. No change in hearing. Sleep was okay. [facility] Medical History (Updated 05/01/25 @ 11:58 by Liliana Coates CNP) Tinnitus Anxiety disorder Migraine without aura Review of Systems Const Denies chills, Denies daytime sleepiness, Denies difficulty sleeping, Denies fatigue, Denies fever(s), Denies frequent falls, Reports headache(s), Denies increased appetite, Denies poor appetite, Denies snoring, Denies weakness, Denies weight gain and Denies weight loss Eyes Denies loss of vision ENT Denies vertigo, Denies dizziness and Reports headache(s) Card Denies chest pain at rest, Denies chest pain with activity, Denies syncope, Denies leg edema and Denies palpitations Resp Denies snoring GI Denies constipation, Denies heartburn, Denies diarrhea and Denies nausea Denies urinary frequency, Denies urinary incontinence and Denies urinary urgency Musc Denies abnormal gait, Denies numbness and Denies tingling Skin/Breast Denies dry skin and Denies rash Neuro Denies abnormal gait, Denies vertigo, Denies dizziness, Denies syncope, Denies frequent falls, Reports headache(s), Denies lack of coordination, Denies loss of vision, Denies memory loss, Denies numbness, Denies restless legs, Denies seizure-like activity, Denies tingling, Denies paresthesias, Denies tremor(s) and Denies weakness Psych Denies anxiety, Denies depression, Denies auditory hallucinations, Denies memory loss, Denies visual hallucinations and Denies suicidal ideation Endo Denies fatigue and Denies palpitations Physical Exam Const Other: General Appearance:? normal, in no acute distress. Skin:? no rashes, no significant birthmarks. Heart:? S1, S2 normal, no murmurs. Lungs:? clear anteriorly and posteriorly. Extremities:? no edema. Psych:? alert, oriented, cognitive function intact, cooperative with exam. Neuro Other: Mental Status:?Normal attention, orientation, memory and affect.? Cranial Nerves:?Pupils are equal, round and reactive to light. External occular muscles are intact. Visual coyne are full. Face is symmetrical. Facial sensations are normal. Tongue is midline. Palate elevates symmetrically. Shoulder shrugging is normal. Hearing to bedside conversation is normal. Motor Examination:?Normal muscle tone, bulk and strength,?Deep tendon reflexes are 2+,?Plantars are flexor.? Sensory Exam:?....? Coordination:?No ataxia,?no titubation.? Gait Exam: Within normal limits. Cerebellar Signs:?Biaeao-[id number] and [id number]-[id number]-[id number] is normal.? Extrapyramidal System:?No tremor, rigidity with normal facial expressions.? Pronator Drift:?Not present.? Involuntary Movements:?No tremors seen.? Speech:?Normal.? Assessment & Plan Assessment & Plan (1) Migraine without aura: Code(s): G43.009 - Migraine without aura, not intractable, without status migrainosus Category: Medical Qualifiers: Status migrainosus presence: without status migrainosus Intractability: not intractable Qualified Code(s): G43.009 - Migraine without aura, not intractable, without status migrainosus Plan: Continue topiramate 25mg 1 tablet twice a day. Continue sumatriptan 50mg 1 tablet as needed for migraine. (2) Tinnitus: Code(s): H93.19 - Tinnitus, unspecified ear Category: Medical Qualifiers: Laterality: unspecified laterality Qualified Code(s): H93.19 - Tinnitus, unspecified ear Plan: . Coding Level of Care Code Est Pt Level 3 (08188) Diagnoses Migraine without aura and without status migrainosus, not intractable G43.009 Status migrainosus presence: without status migrainosus Intractability: not intractable Tinnitus, unspecified laterality H93.19 Laterality: unspecified laterality
--- OUTSIDE RECORDS SUMMARY | 2025-05-01 12:40 | XMS_ITS | Clinical Summary ---
Author Organization [address] Address [address] [place] [phone] Phone Care Team Providers Care Lumber Mover Name Role Phone Ramona Mayer MD Primary Care Provider [phone] Allergies Active Allergy Reactions Criticality Noted Date Comments Cimetidine Other 01/29/2010 H/A's Dizziness Codeine Nausea And Vomiting 09/02/2005 Hydrocodone Bitartrate 05/22/2012 Room spinning Prochlorperazine Other High 09/02/2005 [employer] Medications topiramate (TOPAMAX) 50 mg tablet Take 1 [...] Migraine without aura 12/15/2006 Allergic rhinitis 12/30/2005 Immunizations Name Administration Dates Next Due Influenza [...] with menses, stopped with menopause. IMO update [employer] 11/30/2012 DX:Shingles; COM MENT: 2011 History of peptic ulcer disease [...] drink = 0.6 oz pur e alcohol) Comments Unknown Sex and Gender Information Value Date Recorded Sex Assigned at Not on file Legal Sex Female 7:13 PM EST Gender Identity Not on file Sexual Orientation Not on file Obstetrics History Para Term AB IAB SAB Ectopic Multiple Livin g Live Births 0 0 0 0 Last Filed Vital Signs Vital Sign Reading Time Taken Comments Blood Pressure 118/58 09/17/2024 10:10 AM EST Pulse 93 09/17/2024 10:10 AM EST Temperature 36.3 C (97.4 F) 09/17/2024 10:10 AM EST Respiratory Rate 14 09/17/2024 10:10 AM EST Oxygen Saturation 99% 09/17/2024 10:10 AM EST Inhaled Oxygen Concentration - - Weight 69.1 kg (152 lb 6.4 oz) 09/17/2024 10:10 AM EST Height 165.1 cm (5' 5 ) 09/17/2024 10:10 AM EST Body Mass Index 25.36 09/17/2024 10:10 AM EST Plan of Treatment Upcoming Encounters Date Type Department Care Team (Late st Contact Info) Description 01/04/2026 8:30 AM EDT Appointment Radiology Department - [address] [id number] Health Maintenance Due Date Last Done Comments Depression Screening 09/23/2022 Falls Risk Assessment 09/23/2022 Medicare Annual Wellness Visit 09/23/2022 Social Influencers of Health Screening 09/23/2022 COVID-19 Vaccine (8 - Pfizer risk season) 2025 07/11/2024, 07/24/2023, 07/23/2023, Additional history exists Influenza Vaccine (#1) 2025 , 07/24/2023, 07/23/2023, Additional history exists Cholesterol Screening (Lipid Panel) 05/10/2027 05/10/2022 Colorectal Cancer Screening: Colonoscopy 01/27/2028 01/26/2018, 01/26/2018 DTaP,Tdap,and Td Vaccines (4 - Td or Tdap) 10/08/2029 10/08/2019, 07/21/2016, 10/17/2004 Osteoporosis Screening (Bone Density Screening) 07/01/2037 07/01/2022, 03/21/2019 Hepatitis C Screening Completed 10/15/2013 Zoster Vaccines Completed 04/30/2021, 12/2020, 03/15/2012 Pneumococcal Vaccine: 50+ Years Completed 08/11/2022 RSV Immunization Adult Patients Completed 08/13/2023 Breast Cancer Screening Discontinued 01/04/20, 12/22/2023, 12/22/2023, Additional history exists HIB Vaccines Aged Out [...] patient's age to complete this topic Meningococcal B Vaccine Aged Out No l onger eligible based on patient's age to complete this topic RSV Immunization Patients Under 20 months Aged Out No longer eligible based on patient's age to complete this topic Varicella Vaccines Aged Out No longer eligible based on patient's age to complete this topic Procedures Procedure Name Priority Date/Time Associated Diagnosis Comments MG MAMMO DIGITAL SCREENING W JOHN BILAT Routine 01/03/2025 10:57 AM EDT Encounter for screening mammogram for breast cancer DXA BONE DENSITY STUDY 1+ SITS AXIAL SKEL Routine 07/01/2022 2:10 PM EDT Other specified disorders of bone density and structure, other site LIPID PANEL Routine 05/10/2022 COLONOSCOPY Routine 01/26/2018 HEPATITIS C SCREENING Routine 10/15/2013 from Last 3 Months or Most Recently Relevant to Health Maintenance Results * MG Mammo Digital Screening w John bilat (01/03/2025 10:57 AM EDT) Anatomical Region Laterality Modality Breast Bilateral Mammography 01/03/2025 8:37 PM EDT Impressions 01/03/2025 8:38 PM EDT No mammographic evidence of malignancy. BREAST DENSITY: B - There are scattered areas of fibroglandular density. BI-RADS CATEGORY: 1 - NEGATIVE RECOMMENDATION: Screening bilateral mammogram is recommended in 1 year. MAMMO LOCATION: [facility], [address] [place] [address], [id number], . -------- FINAL REPORT -------- Dictated By: Aiyana Corona Dictated Date: 01/03/2025 20:37 ET Assigned Physician: Aiyana Corona Reviewed and Electronically Signed By: Aiyana Corona Signed Date: 01/03/2025 20:38 ET Workstation ID: [id number] Transcribed By: Self Edit Transcribed Date: 01/03/2025 20:37 ET Narrative 01/03/2025 8:38 PM EDT EXAM: Screening Mammogram CLINICAL: 74 years old, Female, routine annual exam. COMPARISON: 12/22/2023 and as far back as 10/24/2020 TECHNIQUE: Bilateral MLO and CC views were obtained digitally with 3-D mammogram (digital breast tomosynthesis). Computer-aided detection was utilized in evaluation of this exam (CAD). FINDINGS: No new suspicious mass, architectural distortion, or suspicious calcifications. Procedure Note Aiyana Corona MD - 01/03/2025 EXAM: Screening Mammogram CLINICAL: 74 years old, Female, routine annual exam. COMPARISON: 12/22/2023 and as far back as 10/24/2020 TECHNIQUE: Bilateral MLO and CC views were obtained digitally with 3-Dmammogram (digital breast tomosynthesis). Computer-aided detection wasutilized in evaluation of this exam (CAD). FINDINGS: No new suspicious mass, architectural distortion, or suspiciouscalcifications. IMPRESSION: No mammographic evidence of malignancy. BREAST DENSITY: B - There are scattered areas of fibroglandular density. BI-RADS CATEGORY: 1 - NEGATIVE RECOMMENDATION: Screening bilateral mammogram is recommended in 1 year. MAMMO LOCATION: [facility], [address] [place] [address], [id number], . -------- FINAL REPORT -------- Dictated By: Aiyana Corona Dictated Date: 01/03/2025 20:37 ET Assigned Physician: Aiyana Corona Reviewed and Electronically Signed By: Aiyana Corona Signed Date: 01/03/2025 20:38 ET Workstation ID: [id number] Transcribed By: Self Edit Transcribed Date: 01/03/2025 20:37 ET us Yady Yanes MD IMG BI PROCEDURES Final Result * DXA BONE DENSITY STUDY 1+ SITS AXIAL SKEL (07/01/2022 2:10 PM EDT) Anatomical Region Laterality Modality Bone Densitometr y 05/10/2022 10:2 1 AM EDT Narrative 07/02/2022 9:37 AM EDT Clinical history: other(see comments) Scans of the lumbar spine and hips were performed on a [employer] fan beam bone densitometer. Bone mineral density measurements [...] >20% for major osteoporotic fracture PLEASE NOTE: W.H.O. classification is based on lowest measured density at the spine, femoral neck, or total hip.This classification has prognostic significance when applied to post menopausal women and older men. 1) The World Health Organization defines low BMD as follows: T-score Normal at or > -1 Osteopenia < -1 and > -2.5 Osteoporosis at or < -2.5 without fractures Established osteoporosis < -2.5 with fractures Procedure Note Nash Lujan MD - 10/05/2022 Clinical history: other(see comments) Scans of the lumbar spine and hips were performed on a [employer] beam bone densitometer. Bone mineral density measurements [...] withoutfractures Established osteoporosis < -2.5 with fractures Nat Byrd MD [facility] DXA PROCEDUR ES Final Result * (ABNORMAL) Lipid panel (05/10/2022) [facility] LDL/HDL Ratio 3 0 - 4 Triglycerides 78 0 - 150 mg/dL Cholesterol 219(A) 0 - 200 mg/dL HDL 74 >=40 mg/dL LDL Cholesterol 130(A) 0 - 100 mg/dL Blood Venous blood specimen / Unknown Historical Provider LAB BLOOD ORDERABLES Martha l Result * Colonoscopy (01/26/2018) [facility] Colonoscopy no interpretation , abstracted Anatomical Region Laterality Modality Other Historical Provider HEALTH MAINTENANCE Final Result * Hepatitis C Screening (10/15/2013) [facility] Hepatitis C Screening abstracted Historical Provider HEALTH MAINTENANCE Final Result from Last 3 Months or Most Recently Relevant to Health Maintenance Insurance MEDICARE [facility] [employer] Care Teams Lumber Mover Relationship Specialty Start Date End Date Ramona Mayer MD [address] [place] [address] PCP - General Internal Medicine 04/16/20
--- OUTSIDE RECORDS SUMMARY | 2025-05-01 12:40 | XMS_ITS | Patient Health Record ---
Author Organization [facility] Address [address] [place] [address] Care Team Providers Care Assembler Radio And Electrical Name Role Phone Ramona Mayer Primary Care Provider Mariam Meléndez Unavailable [phone] Allergies Allergen (clinical drug ingredient) Drug/Non Drug Allergy documented on EMR Reaction Allergy Type Onset Date Status cimetidine Tagamet HB Unknown Drug Allergy Activ e Compazine Unknown Drug Allergy Active Reason For Referral No Information Medications Medication SIG (Take, Route, Frequency, Duration) Notes Start Date End Date Status Ibuprofen 800 MG 1 tablet with food o r milk as needed Orally Three times a day after surgery; Duration: 14 days 11/04/2023 Active LORazepam 0.5 MG 1 tablet at bedtime as needed Orally Once a day PRN Active Topiramate 50 MG as directed Orally Once a day Active Lexapro 5 MG 1 tablet Orally Once a day Active Sertraline HCl 100 MG 1 tablet Orally On ce a day; Duration: 30 day(s) Not-Taking Omeprazole Not-Takin g Levothyroxine Sodium Not-Taking Estradiol Not-Taking Atorvastatin Calcium Not-Taking buPROPion HCl ER (SR) 150 MG 1 tablet in the morning Orally Once a day; Duration: 30 day(s) Not-Taking SUMAtriptan Succinate 50 MG 1 tablet at least 2 hours between doses as needed Orally Twice a day PRN Not-Taking Keflex 500 MG 1 capsule Orally galindo ry 12 hrs; Duration: 5 days 10/02/2024 Active Immunizations Vaccine Route Administration Date Status Comme nts COVID-19 Pfizer BioNTech Vaccine Unknown 10/02/2021 Administered 1st 12/24/2020 2nd 01/14/2021 Social History Tobacco Use: Social History Observation Description Date Details (start date - stop date) Never Smoker NA - NA Tobacco use other than smoking: Question Answer Notes Are you an other tobacco user? No Tobacco Control (Standard) Question Answer Notes Tobacco use: Nonsmoker Additional Findings: Tobacco non-user Current no nsmoker AUDIT-C (Standard) Question Answer Notes Did you have a drink contain ing alcohol in the past year? Yes How often did you have a dri nk containing alcohol in the past year? Monthly or less (1 point) How many drinks did you have on a typical day when you were drinking in the past year? 1 or 2 drinks (0 point) How often did you have six o r more drinks on one occasion in the past year? Never (0 point) Points 1 Interpretation Negative Problems Problem Type SNOMED Code ICD Code Onset Dates Problem Status W/U Status Risk Notes Problem Acquired hallux valgus (50822124) Hallux valgus (acquired), left foot (M20.12) Active confirmed Decision for surgery (4) Problem Acquired hallux valgus (42956798) Hallux valgus (acquired), right foot (M20.11) Active confirmed Problem Acquired hammer toe of right foot (808717870871 9105) Hammer toe of right foot (M20.41) Active confirmed Problem Acquired hammer toe of left foot (679016537348 9103) Hammer toe of left foot (M20.42) Active confirmed Decision for surgery (4) Vital Signs Heart Rate 84 /min 11/13/2024 Blood pressure diastolic 70 mm Hg 12/14/2024 Height 5ft5in in 12/14/2024 Blood pressure systolic 125 mm Hg 12/14/2024 Weight 145 lbs 12/14/2024 BMI 24.13 kg/m2 12/14/2024 Encounters Encounter Location Date Provider Diagnosis Surgery [facility] ([place]) [address] [place] [address] 09/26/2024 Mariam Salter [facility] [place] [address] [place] [address] 09/05/2024 Mariam Salter Hammer toe of right foot M20.41 ; Hallux valgus (acquired), right foot M20.11 ; Pain in right foot M79.671 and Toe contracture, right M20.5X1 [address] [address] 10/02/2024 Mariam Perica Hammer toe of right foot M20.41 ; Hallux valgus (acquired), right foot M20.11 ; Pain in right foot M79.671 ; Toe contracture, right M20.5X1 ; Local edema R60.0 and Abrasion of right foot, initial encounter S90.811A [facility] [address] [place] [address] 10/08/2024 Mariam Perica Hammer toe of right foot M20.41 ; Hallux valgus (acquired), right foot M20.11 and Toe contracture, right M20.5X1 [address] [address] 10/23/2024 Mariam Perica Hammer toe of right foot M20.41 ; Hallux valgus (acquired), right foot M20.11 and Toe contracture, right M20.5X1 [address] [address] 11/13/2024 Mariam Perica Hammer toe of right foot M20.41 ; Hallux valgus (acquired), right foot M20.11 ; Toe contracture, right M20.5X1 and Local edema R60.[address] [address] 12/14/2024 Mariam Perica Hammer toe of right foot M20.41 ; Hallux valgus (acquired), right foot M20.11 ; Toe contracture, right M20.5X1 ; Local edema R60.0 and Postoperative visit Z48.[address] [address] 08/28/2024 Mariam Perica [address] [address] 09/21/2024 Mariam Salter [facility] [address] [place] [address] 09/27/2024 Mariam Salter [facility] [address] [place] [address] 10/08/2024 Mariam Salter [facility] [address] [address] 01/25/2025 Mariam Salter Assessments Encounter Date Diagnosis (ICD Code) Assessment Notes Treatment Notes Treatment Clinical Notes Section Notes 09/05/2024 Hallux valgus (acquired), right foot (ICD-10 - M20.11) 09/05/2024 Hammer toe of right foot (ICD-10 - M20.41) 10/02/2024 Hallux valgus (acquired), right foot (ICD-10 - M20.11) 10/02/2024 Hammer toe of right foot (ICD-10 - M20.41) 10/08/2024 Hallux valgus (acquired), right foot (ICD-10 - M20.11) 10/08/2024 Hammer toe of right foot (ICD-10 - M20.41) 10/23/2024 Hammer toe of right foot (ICD-10 - M20.41) 11/13/2024 Hammer toe of right foot (ICD-10 - M20.41) 12/14/2024 Hammer toe of right foot (ICD-10 - M20.41) 12/14/2024 Toe contracture, right (ICD-10 - M20.5X1) 11/13/2024 Toe contracture, right (ICD-10 - M20.5X1) 12/14/2024 Hallux valgus (acquired), right foot (ICD-10 - M20.11) 11/13/2024 Hallux valgus (acquired), right foot (ICD-10 - M20.11) 10/08/2024 Toe contracture, right (ICD-10 - M20.5X1) 10/23/2024 Hallux valgus (acquired), right foot (ICD-10 - M20.11) 09/05/2024 Pain in right foot (ICD-10 - M79.671) 10/02/2024 Pain in right foot (ICD-10 - M79.671) 09/05/2024 Toe contracture, right (ICD-10 - M20.5X1) 10/02/2024 Toe contracture, right (ICD-10 - M20.5X1) 10/23/2024 Toe contracture, right (ICD-10 - M20.5X1) 11/13/2024 Local edema (ICD-10 - R60.0) 12/14/2024 Local edema (ICD-10 - R60.0) 12/14/2024 Postoperative visit (ICD-10 - Z48.89) 10/02/2024 Local edema (ICD-10 - R60.0) 10/02/2024 Abrasion of right foot, initial encounter (ICD-10 - S90.811A) Plan Of Treatment Pending Test Test Name [...] X ray : Foot, right 3V 09/05/2024 X ray : Foot, right 3V 10/02/2024 X ray : Foot, right 3V 10/08/2024 X ray : Foot, right 3V 10/23/2024 X ray : Foot, right 3V 11/13/2024 X ray : Foot, right 3V 12/14/2024 Insurance Providers Payer Name Payer Address Payer Phone Subscriber Number Group Number Insured Name Patient Relationship to Insured Coverage Start Date Coverage End Date Medicare National [employer]t [employer] [address] [facility] [place] [address] [id number] Ramona Jean Self - patient is the insured [facility] [address] [place]MEO [id number] [phone] [id number] Ramona Jean Self - patient is the insured Medical (General) History Medical History History ICD Code Anxiety Broken bones Cataracts Gall bladder problems Headaches/Migraines Measles Mumps Chicken pox Osteopenia Surgical History Surgery Date(Month/Year) gall bladder 2016 foot surgery 2019 [facility] 2005 finger surgery 11/23 Tony and Bryce Left, flexor tenotomy 4t h toe 11/09 eye surgery 08/27/24 1st MPJ Fusion Right, Hammer toe Repair Right 2nd, Tenotomy/Capsulotomy Right 2nd 09/26/24
--- OUTSIDE RECORDS SUMMARY | 2025-05-01 12:40 | XMS_ITS | Data Portability ---
Author Organization [place] [facility] [place] Address [address] [place] [address] Care Team Providers Care Hardware Engineering Manager Name Role Phone AUDI HARDY Primary Care Provider [phone] Assessment Encounter Date Assessment Date Assessment LastModified [...] findings at length with the patient today. We discussed the nature and etiology of this problem along with current treatment options. We discussed the expected course and outcomes and what to expect. We also discussed risks and benefits. All of their questions were answered today, and there was exhibited understanding and comprehension of all that was discussed. Time Spent: 10 minutes were spent reviewing previous imaging and charting. 10 minutes were spent obtaining patient history. 5 minutes were spent on physical exam. 5minutes were spent explaining diagnosis and assessment. Today's documentation was made using voice recognition software. This note may contain grammatical errors secondary to the software. [email or web address] Not available 06/17/2023 10:56:06 07/06/2023 07/06/2023 INTERIM [...] findings at length with the patient today. We discussed the nature and etiology of this problem along with current treatment options. We discussed the expected course and outcomes and what to expect. We also discussed risks and benefits. All of their questions were answered today, and there was exhibited understanding and comprehension of all that was discussed. Time Spent: 10 minutes were spent reviewing previous imaging and charting. 10 minutes were spent obtaining patient history. 5 minutes were spent on physical exam. 5minutes were spent explaining diagnosis and assessment. Today's [...] insurance for [employer] on, insurance preferred med. Choose One: 3 series or 1 series Knee Laterality: Bilatera l 2023 024 [email or web address] Not available 4 11:03:36 Surgeries None recorded. Imaging XR, knee, 4 or more view 2023 024 [facility], [address], [address], [place], [address], 4 11:44:43 XR, knee, 4 or more view 2023 024 [facility], [address], [address], [place], [address], 4 11:44:43 XR, finger(s), 2 or more view 2022 023 [email or web address] [facility], [address], [address], [place], [address], 3 13:46:00 XR, finger(s), 2 or more view 2022 023 [email or web address] [facility], [address], [address], [place], [address], 3 15:12:14 Medication Orders Monovisc 88 mg/4 mL intra-artic ular syringe 2023 024 [id number], [address], [place], [address], 4 09:42:33 Monovisc 88 mg/4 mL intra-artic ular syringe 2023 024 [email or web address] Not available 4 12:00:44 Monovisc 88 mg/4 mL intra-artic ular syringe 2022 023 [email or web address] [id number], [address], [place], [address], 3 15:11:34 Monovisc 88 mg/4 mL intra-artic ular syringe 2022 023 [email or web address] [id number], [address], [place], [address], 3 15:11:34 Patient TargetsNo targets recorded. Patient Instructions Encounter Date Encounter Id Patient Instructions Last Modified By Organization Details Last Modified Time 08/17/2023 [id number] You have been pr ovided with a [...] following the injection. This is called a flare . To help minimize the chances of this, please see the post-injection instructions above. There is a less than 1% chance of an infection. If you notice any signs of infection (redness, warmth, drainage, fever greater than 100 degrees) please call our office or contact us through the portal MIGUEL. [email or web address] Not available 08/17/2023 12:58:31 02/23/2024 [id number] view X-ray dominique dy obtained during today's office encounter show evidence of moderate bilateral knee osteoarthritis. There is joint space narrowing, subchondral sclerosis and marginal osteophytosis. Kellgren-Shravan grade 2. No evidence of acute fracture or osteolytic [...] Time Digital mucous cyst of left hand 3492951500687 101 Active 2022 Killian Harrison MD [address], [place], [address], [place] [facility] 3 15:08:41 Arthritis of finger of left hand 3031187926227 9100 Active 2022 Killian Harrison MD [address], [place], [address], [place] [facility] 3 15:08:56 Osteoarthri tis of right knee joint 6133265220475 00 Active 2023 TALI PAPPAS PA-C [address], [place], [address], [place] [facility] 4 11:02:24 Osteoarthri tis of left knee joint 6743854084039 09 Active 2022 TALI QUEEN PA-C [address], [place], [address], [place] [facility] 14:13:59 Problem Notes None recorded. Procedures Surgical History Date Name Laterality Status Provider Name and Address Organization Details Recorded Time 03/29/20 24 Monovisc Knee Inj w/US completed TALI PAPPAS PA-C [address], [place], [address], [place] [facility] 03/29/2024 09:17:11 08/17/20 23 Monovisc Knee Inj completed TALI QUEEN PA-C [address], [place], [address], [place] [facility] 08/17/2023 13:29:00 02/26/20 23 Monovisc Knee Inj completed TALI QUEEN PA-C [address], [place], [address], [place] [facility] 02/25/2023 14:13:40 02/26/20 23 Knee Joint/Bursa Asp & Inj completed TALI QUEEN PA-C [address], [place], [address], [place] [facility] 02/25/2023 14:13:19 Hand Surgery completed Frederic Cardenas [place] - [facility] 07/06/2023 11:21:12 Gallbladder Surgery completed Rebel William [place] [facility] 02/25/2023 13:49:24 Imaging Results None recorded. Procedure Notes None recorded. Medical Equipment None Reported. Allergies Allergen ID Allergen Name Allergen Category Reaction Reaction Severity Criticality Documentation Date Start Date Code Code System Note Provider Name and Address Organization Details Recorded Time 3935 Tagamet medicatio n Not available Not available Not available 02/25/2023 41099 2 RxNorm Rebel William null, [place] [facility] 3 13:47:34 3936 Compazine medicatio n Not available Not available Not available 02/25/2023 86175 6 RxNorm Rebel William null, [place] [facility] 3 13:47:47 Medications Name Sig Start [...] 2023 active Not Available Not Available Not Hoodai labbelen Vitals Date Recorded Body height Body mass index (BMI) Body weight Provider Name and Address Organization Details Last Updated DateTime 03/29/2024 165.1 cm 24.1 kg/m2 [address].[address] [place] [facility] 03/29/2024 09:07:13 Date Recorded Body height Body mass index (BMI) Body weight Provider Name and Address Organization Details Last Updated DateTime 07/06/2023 165.1 cm 24.1 kg/m2 26479.[address] [place] [facility] 07/06/2023 11:21:03 Date Recorded Body height Provider Name an d Address Organization Details Last Updated DateTime 08/17/2023 165.1 cm Bibi Lacy [place] [facility] 08/17/2023 13:13:11 Social History Question Answer Notes LastModified by [employer] Details LastModified Time Tobacco Smoking Status Former Smoker Rebel Gibbonsrossy james, [place] - [facility] 02/25/2023 13:48:34 When Did You Quit Smoking? 16+yearssinc elastcigaret te [email or web address] Information not available 02/25/2023 Sex: Unknown Functional Status Question Answer Note LastModified by [employer] ion Details LastModified Time Do you use any illicit or recreational drugs? No [email or web address] Information not available 02/25/2023 Do you or have you ever used any other forms of tobacco or nicotine? No [email or web address] Information not available 02/25/2023 What is your level of alcohol consumption? Occasional [email or web address] Information not available 02/25/2023 Mental Status None recorded. Family History Relationship [...] MRSA N Blood Transfusion N Emphysema N Hypothyroidism N Depression N COPD N Pacemaker N Vascular Disease N Gastrointestinal Disease N Anxiety Disorder N Autoimmune disease N Arthritis N Cancer N Stroke N High Cholesterol N Neurologic Disorder N Liver Disease N Organ Transplant N Rheumatoid Arthritis N Arrhythmia N Fibromyalgia N Kidney Disease N Allergies/Hayfever N Adverse Reaction to Anesthesia N Thyroid Problems N Anemia N Brain Injury N Heart Attack ([place]) N Osteopenia N Diabetes N Bleeding Disorder [...] Code Diagnosis ICD10 Code Diagnosis Note [id number] RONI TORRES [facility] [address] [facility] [address] [place] [address] 02/25/2023 13:26:00 02/25/2023 14:12:52 Pain of bilateral knee joints 6882665339 83235 M25.561 M25.562 Osteoarthr itis of right knee joint 6999194736 80644 M17.11 Osteoarthr itis of left knee joint 9842438945 90155 M17.12 [id number] MD REYNALDO August [address] [place] [address] [place] [address] 05/12/2023 13:51:05 05/12/2023 15:21:21 Pain in finger of left hand 8144554573 91986 M79.645 Digital mu cous cyst of left hand 7486790762 140122 M67.442 M13.842 Left long finger Arthritis of finger of left hand 1799831898 8272451 M13.842 DIP joint left long finger 78602 RONI TORRES [address] [place] [address] 06/17/2023 10:14:42 06/17/2023 10:48:02 Digital mucous cyst of left hand 1953470986 507677 M67.442 M13.842 Arthritis of finger of left hand 7315040991 2858552 M13.842 53385 MD REYNALDO August [place] [address] [facility] [address] [place] [address] 07/06/2023 11:14:08 07/06/2023 11:32:47 Arthritis of finger of left hand 9349290961 5600363 M13.842 DIP joint left long finger Digital mu cous cyst of left hand 4095988420 994395 M67.442 M13.842 Left long finger [id number] RONI TORRES [facility] [address] [facility] [address] [place] [address] 08/17/2023 12:53:46 08/17/2023 13:26:12 Osteoarthritis of left knee joint 2396714966 08776 M17.12 Osteoarthr itis of right knee joint 4508349021 99001 M17.11 42470 RONI ARGUELLO [facility] [address] [facility] [address] [place] [address] 02/23/2024 10:28:45 02/23/2024 11:00:27 Osteoarthritis of left knee joint 6935955189 21602 M17.12 Osteoarthr itis of right knee joint 6326326126 79935 M17.11 Additional diagnosis detail: Primary osteoarthr itis of right knee 18958 RONI ARGUELLO [facility] [address] [address] 03/29/2024 08:53:18 03/29/2024 09:20:05 Osteoarthritis of left knee joint 4431839554 16930 M17.12 Osteoarthr itis of right knee joint 3834278276 62222 M17.11 Additional diagnosis detail: Primary osteoarthr itis of right knee Health Concerns Section Related Observation LastModified by Organization Detai ls LastModified Time None Recorded Concern Status LastModified by Organization Details LastModified Time None Recorded Advance Directives Directive None Recorded Payers Insurance Date Sequence Insurance Name Policy Number Policy Oden Covered Member ID Oden Member ID Guarantor Name 03/26/2024 1 [place]ICARE [place]: PISTIS Consult Audi Jean [id number] Audi Jean 03/26/2024 2 [facility] [id number] Audi Jean [id number] Audi Jean Notes Date Note Type Note [...] removal postop x-ray. TALI QUEEN PA-C [address], [place], [address], [place] [facility] 06/17/2023 10:56:28 3 text/html This is [...] and viscosupplementation injection. TALI QUEEN PA-C [address] [facility] [address], [address], [place] [facility] 08/17/2023 13:30:59 4 text/html 73-year-old female [...] contact this office. TALI PAPPAS PA-C [address] [facility] [address], [place], [address], [place] [facility] 02/23/2024 11:03:33 OBGyn Episode No OBEpisode recorded.
--- OUTSIDE RECORDS SUMMARY | 2025-05-01 12:40 | XMS_ITS ---
[facility] Name [facility] Unknown History of Medication Use Medication Directions Dispensed Refills Start Date End Date Stat Kenalog 40 mg/mL suspension for injection Take 1 mL by injection route. 02/25/2023 05/12/2023 completed lidocaine (PF) 10 mg/mL (1 %) injection solution Take 2 mL by injection route. 02/25/2023 05/12/2023 completed lidocaine (PF) 10 mg/mL (1 %) injection solution Take 2 mL by injection route. 02/25/2023 05/12/2023 completed acetaminophen 300 mg-codeine 30 mg tablet TAKE 1 TO 2 TABLETS BY MOUTH EVERY 4 TO 6 HOURS NEEDED FOR PAIN DNF 06/0606/09/2023 active ipratropium bromide 42 mcg (0.06 %) nasal spray SPRAY 2 SPRAYS BY INTRANASAL ROUTE 3 TIMES A DAY FOR 5 DAYS 05/12/2023 completed ipratropium bromide 42 mcg (0.06 %) nasal spray SPRAY 2 SPRAYS BY INTRANASAL ROUTE 3 TIMES A DAY FOR 5 DAYS 05/12/2023 completed tizanidine 2 mg tablet TAKE 1 TABLET BY MOUTH EVERY 8 HOURS NEEDED (PAIN) FOR UP TO 10 DAYS. 05/12/2023 completed tizanidine 2 mg tablet TAKE 1 TABLET BY MOUTH EVERY 8 HOURS NEEDED (PAIN) FOR UP TO 10 DAYS. 05/12/2023 completed Monovisc 88 mg/4 mL intra-articular syringe active bupropion HCl XL 150 mg 24 hr tablet, extended release TAKE 1 TABLET BY MOUTH EVERY DAY active lorazepam 0.5 mg tablet TAKE 1 TABLET BY MOUTH EVERY DAY NEEDED active lorazepam 0.5 mg tablet TAKE 1 TABLET BY MOUTH EVERY DAY NEEDED active sertraline 100 mg tablet TAKE ONE TAB BY MOUTH WITH 25MG TAB TO MAKE A TOTAL OF 125MG DAILY active sertraline 25 mg tablet TAKE ONE TAB BY MOUTH DAILY (WITH 100MG TAB TO MAKE A TOTAL OF 125MG DAILY DOSE) active topiramate 25 mg tablet TAKE 1 TABLET BY MOUTH TWICE A DAY active Allergies Allergen Reaction Severity Comment Documented Date Source Statu s COMPAZINE ENS_[facility]ONECT TAGAMET ENS_[facility]ONECT Problems Problem Status Onset Date Problem Type Date of Resoluti on Source Arthritis of finger of left hand active 2023-05-12 ProblemAct [facility] Osteoarthritis of left knee joint active 2023-02-25 ProblemAct [facility] Digital mucous cyst of left hand active 2023-05-12 ProblemAct [facility] Osteoarthritis of right knee joint active 2024-02-23 ProblemAct [facility] Encounters Encounter Type Encounter Reason Primary Diagnosis Location Date Ambulatory [facility] [place] 03/29/2024 Ambulatory [facility] [place] 03/27/2024 Ambulatory [facility] [place] 02/24/2024 Ambulatory [facility] [place] 02/23/2024 Ambulatory [facility] 09/21/2023 Ambulatory [facility] 08/17/2023 Ambulatory [facility] [place] 08/16/2023 Ambulatory [facility] [place] 08/16/2023 Ambulatory [facility] [place] 07/05/2023 Ambulatory [facility] 07/05/2023 Ambulatory [facility] [place] 06/17/2023 Ambulatory [facility] [place] 06/16/2023 Ambulatory Ganglion, left hand Ganglion, left hand [facility] 06/06/2023 Ambulatory [facility] [place] 05/13/2023 Ambulatory [facility] [place] 05/12/2023 Ambulatory [facility] [place] 05/12/2023 Ambulatory [facility] [place] 05/11/2023 Ambulatory [facility] [place] 02/25/2023 Ambulatory [facility] [place] 02/25/2023 Ambulatory [facility] 02/25/2023 Ambulatory [facility] 02/25/2023 Ambulatory [facility] 02/25/2023 Ambulatory [facility] 02/24/2023 Care Team Organization Name Specialty Phone Email Start Date [place] [facility] [place] [facility] [place] [facility] 06/06/2023 06/06/2023 [facility] AUDI HARDY Primary Care 09/16/2022
--- OUTSIDE RECORDS SUMMARY | 2025-05-01 12:40 | XMS_ITS | Clinical Summary ---
Author Organization [facility] Address [address] [place] [address] Care Team Providers Care Search Engineer Name Role Phone Ramona Mayer MD Primary Care Provider [phone] Allergies Active Allergy Reactions Criticality Noted Date [...] Evaluation 1968 Colon Cancer Screening (Colonoscopy) 1995 Fall Risk Assessment 2015 Osteoporosis Screening (DEXA Scan) 2015 Pneumococcal Vaccine (1 of 1 - PCV) 2015 COVID-19 Vaccine ( season) 2024 05/26/2022, 10/02/2021, 01/14/2021, Additional history exists RSV Adult > 60+ Yrs or (1 - 1-dose 75+ series) 2025 Influenza Vaccine (#1) 2025 DTap / Tdap / Td (3 - Td or Tdap) 10/08/2029 10/08/2019, 07/21/2016 Shingrix-Zoster Vaccine Completed 04/30/2021, 02/16 Hepatitis B Vaccines Aged Out No long er eligible based on patient's age to complete this topic RSV Ped < 20 months Aged Out No longe r eligible based on patient's age to complete this topic Care Teams Search Engineer Relationship Specialty Start Date End Date Ramona Mayer MD PCP - General Internal Medicine 07/01/20
== END 2025-05-01 12:10 | disposition home or self-care (01) ==
LOC: HO.HSM 11:34
PROVIDERS: PCP Internal Medicine; Referring Provider Internal Medicine; Visit Provider Registered Nurse
DX: G43.009 Migraine without aura, not intractable, without status migrainosus (principal); H93.19 Tinnitus, unspecified ear
CPT/HCPCS: 99213

== ENCOUNTER → 2025-05-01 11:33 | Outpatient (BNVA) | payer MEDICARE, OTHER, SELFPAY | PROVIDERS: PCP Internal Medicine; Referring Provider Internal Medicine; Visit Provider Registered Nurse | DX: G43.009 Migraine without aura, not intractable, without status migrainosus (principal); H93.19 Tinnitus, unspecified ear | CPT/HCPCS: 99212 ==

== ENCOUNTER 2025-05-27 13:20 | Outpatient (AMB) | payer MEDICARE, OTHER, SELFPAY ==
--- NOTE | 2025-05-27 13:29 | MHC.OFFVIS ---
Vital Signs 05/27/25 13:32 Height 5 ft 5 in Weight 148 lb BMI 24.6 Intake Visit Reasons: Inj: Bilateral knee Durolane-due 05/20/25 Intake Note: Ramona is a 75 year old female who presents with complaints of bilateral knee pains. She describes her pains as sharp in nature. Her pains have gotten worse over the last few months in spite of continued non operative treatments. She has tried Tylenol, anti-inflammatory medicines, a home exercise program and cortisone injections which gave her minimal relief. She has had viscosupplementation injections which gave her good relief. She wishes to hold off on surgery if at all possible. Allergies influenza virus vaccine, specific (Influenza Virus Vacc,Specific) Allergy (Unknown, Verified 05/27/25 13:31) DOUBLE VISION FROM FLU SHOT acetaminophen (From VICODIN) Adverse Reaction (Unknown, Verified 05/27/25 13:31) DIZZY cimetidine (From TAGAMET) Adverse Reaction (Unknown, Verified 05/27/25 13:31) DIZZY SEASONAL ALLERGIES Allergy (Unknown, Uncoded 05/01/25 11:59) SNEEZING, ITCHY WATERY EYES From COMPAZINE Adverse Reaction (Unknown, Uncoded 05/01/25 11:59) JITTERY From TAGAMET Adverse Reaction (Unknown, Uncoded 05/01/25 11:59) DIZZY From VICODIN Adverse Reaction (Unknown, Uncoded 05/01/25 11:59) DIZZY Medication List - Last Reconciled 05/28/25 by Juan Ramon Jensen MD escitalopram oxalate 10 mg PO DAILY lorazepam 0.5 mg PO DAILY sumatriptan succinate 50 mg PO DAILY PRN topiramate 25 mg PO BID 90 days [facility] Medical History (Updated 05/01/25 @ 11:58 by Liliana Coates CNP) Tinnitus Anxiety disorder Migraine without aura Physical Exam Vital Signs: BMI result Body Mass Index 24.6 Const Other: Well-nourished well-developed very friendly female awake alert and oriented x3 in no acute distress Extrem Other: Bilateral knee examination shows minimal effusions, palpable crepitus with range of motion, pain with range of motion, no instability Office Procedures AMB Joint Injection/Aspiration Joint Injection/Aspiration Primary Site: left knee Prep: site was prepped using aseptic technique Injected: 60 mg of (Durolane viscosupplementation) and 1% plain lidocaine Procedure: The patient tolerated the procedure well Coding - Large joint Procedure code (CPT) selection complete AMB Joint Injection/Aspiration Joint Injection/Aspiration Primary Site: right knee Prep: site was prepped using aseptic technique Injected: 60 mg of (Durolane viscosupplementation) and 1% plain lidocaine Procedure: The patient tolerated the procedure well Coding - Large joint Procedure code (CPT) selection complete Assessment & Plan Assessment & Plan (1) Osteoarthritis of left knee: Code(s): M17.12 - Unilateral primary osteoarthritis, left knee Category: Medical (2) Osteoarthritis of right knee: Code(s): M17.11 - Unilateral primary osteoarthritis, right knee Category: Medical Plan Ms. Jean presents with bilateral knee pains due to osteoarthritis. The risks and benefits of bilateral knee Durolane viscosupplementation injections were discussed at length with the patient. The patient wished to proceed. She tolerated the injections well. She will continue with her home exercise program. She will contact me prior to her follow-up appointment in 6 months should any questions or concerns arise. Feel free to call me at any time should questions regarding her orthopedic management arise. I spent 20 minutes in reviewing the patient's records and imaging studies, seeing the patient and documenting in the medical record. Orders: Orders AMB Joint Injection/Aspiration 05/27/25 M17.11 - Unilateral primary osteoarthritis, right knee AMB Joint Injection/Aspiration 05/27/25 M17.12 - Unilateral primary osteoarthritis, left knee Coding Level of Care Code Est Pt Level 3 (49639) Complex EM visit Add On G2211 Diagnoses Osteoarthritis of left knee M17.12 Osteoarthritis of right knee M17.11 CPT Codes Coding - 72217 Large joint: 94577 - Large joint ([id number]) Coding - 21684 Large joint: 64761 - Large joint ([id number])
--- OUTSIDE RECORDS SUMMARY | 2025-05-27 13:30 | XMS_ITS | Patient Health Record ---
Author Organization [facility] Address [address] [place] [address] Care Team Providers Care Waste Disposal Attendant Name Role Phone Ramona Mayer Primary Care Provider Mariam Meléndez Unavailable [phone] Allergies Allergen (clinical drug ingredient) Drug/Non Drug [...] Status Risk Notes Problem Acquired hallux valgus (77273700) Hallux valgus (acquired), left foot (M20.12) Active confirmed Decision for surgery (4) Problem Acquired hallux valgus (08938872) Hallux valgus (acquired), right foot (M20.11) Active confirmed Problem Acquired hammer toe of right foot (784640528342 9105) Hammer toe of right foot (M20.41) Active confirmed Problem Acquired hammer toe of left foot ([id number] 9103) Hammer toe of left foot (M20.42) Active confirmed Decision for surgery (4) Vital Signs Heart Rate 84 /min 11/13/2024 Blood pressure diastolic 70 mm Hg 12/14/2024 Height 5ft5in in 12/14/2024 Blood pressure systolic 125 mm Hg 12/14/2024 Weight 145 lbs 12/14/2024 BMI 24.13 kg/m2 12/14/2024 Encounters Encounter Location Date Provider Diagnosis Surgery [facility] ([place]) [address] [place] [id number] 09/26/2024 Mariam Salter [facility] [address] [place] [address] 09/05/2024 Mariam Salter Hammer toe of right foot M20.41 ; Hallux valgus (acquired), right foot M20.11 ; Pain in right foot M79.671 and Toe contracture, right M20.5X1 [address] [address] 10/02/2024 Mariam Perica Hammer toe of right foot M20.41 ; Hallux valgus (acquired), right foot M20.11 ; Pain in right foot M79.671 ; Toe contracture, right M20.5X1 ; Local edema R60.0 and Abrasion of right foot, initial encounter [id number] [facility] [address] [place] [address] 10/08/2024 Mraiam Perica Hammer toe of right foot M20.41 ; Hallux valgus (acquired), right foot M20.11 and Toe contracture, right M20.5X1 [address] [address] 10/23/2024 Mariam Perica Hammer toe of right foot M20.41 ; Hallux valgus (acquired), right foot M20.11 and Toe contracture, right M20.5X1 [address] [address] 11/13/2024 Mariam Perica Hammer toe of right foot M20.41 ; Hallux valgus (acquired), right foot M20.11 ; Toe contracture, right M20.5X1 and Local edema R60.[address] [address] 12/14/2024 Mariam Perica Hammer toe of right foot M20.41 ; Hallux valgus (acquired), right foot M20.11 ; Toe contracture, right M20.5X1 ; Local edema R60.0 and Postoperative visit Z48.[address] [address] 08/28/2024 Mariam Perica [address] [address] 09/21/2024 Mariam Salter [facility] [address] [place] [address] 09/27/2024 Mariam Salter [facility] [address] [place] [address] 10/08/2024 Marima Salter [facility] [address] [address] 01/25/2025 Mariam Salter Assessments Encounter Date Diagnosis [...] Medicare [employer] [address] [facility] [place] [address] [id number] Ramona Jean Self - patient is the insured [facility] [address] CHARLIE BERMEO [id number] [id number] Ramona Jean Self - patient is [...]
--- OUTSIDE RECORDS SUMMARY | 2025-05-27 13:30 | XMS_ITS | Clinical Summary ---
Author Organization [facility] Address [address] [place] [address] Care Team Providers Care Cable Spooler Name Role Phone Ramona Mayer MD Primary Care Provider [phone] Allergies Active Allergy Reactions Criticality Noted Date [...] age to complete this topic Care Teams Cable Spooler Relationship Specialty Start Date End Date Ramona Mayer MD PCP - General Internal Medicine 07/01/20
--- OUTSIDE RECORDS SUMMARY | 2025-05-27 13:30 | XMS_ITS | Clinical Summary ---
Author Organization [address] Address [address] [place] [phone] Phone Care Team Providers Care Drop Wirer Name Role Phone Ramona Mayer MD Primary Care Provider [phone] Allergies Active Allergy Reactions Criticality Noted Date [...] 8:30 AM EDT Appointment Radiology Department - [address] [phone] Health Maintenance Due Date Last Done Comments Falls Risk Assessment 09/23/2022 Medicare Annual Wellness Visit 09/23/2022 Social Influencers of Health Screening 09/23/2022 Depression Screening 10/17/2024 COVID-19 Vaccine ( season) 2025 07/11/2024, 07/24/2023, 07/23/2023, Additional history [...] structure, other site LIPID PANEL Routine 05/10/2022 HM COLONOSCOPY Routine 01/26/2018 HEPATITIS C SCREENING Routine [...] is recommended in 1 year. MAMMO LOCATION: [facility], [address] [place] [address], [id number], . -------- FINAL REPORT -------- Dictated By: Aiyaan Corona Dictated Date: 01/03/2025 20:37 ET Assigned Physician: Aiyana Corona Reviewed and Electronically Signed By: Aiyana Corona Signed Date: 01/03/2025 20:38 ET Workstation ID: [id number] Transcribed By: Self Edit Transcribed Date: 01/03/2025 [...] is recommended in 1 year. MAMMO LOCATION: [facility], [address] [place] [address], [id number], . -------- FINAL REPORT -------- Dictated By: Aiyana Corona Dictated Date: 01/03/2025 20:37 ET Assigned Physician: Aiyana Corona Reviewed and Electronically Signed By: Aiyana Corona Signed Date: 01/03/2025 20:38 ET Workstation ID: [id number] Transcribed By: Self Edit Transcribed Date: 01/03/2025 20:37 ET us Yady Yanes MD IMG BI PROCEDURES Final Result * DXA BONE DENSITY STUDY 1+ SITS AXIAL SKEL (07/01/2022 2:10 PM EDT) Anatomical Region Laterality Modality Bone Densitometr y 05/10/2022 10:2 1 AM EDT Narrative 07/02/2022 9:37 AM EDT Clinical history: other(see comments) Scans of the lumbar spine and hips were performed on a [employer] fan beam bone densitometer. Bone mineral density [...] spine and hips were performed on a [employer] beam bone densitometer. Bone mineral density measurements [...] < -2.5 with fractures Nat Byrd MD [facility] [place]ED[place] Final Result * (ABNORMAL) Lipid panel (05/10/2022) [facility] LDL/HDL Ratio 3 0 - 4 Triglycerides 78 0 - 150 mg/dL Cholesterol 219(A) 0 - 200 mg/dL HDL 74 >=40 mg/dL LDL Cholesterol 130(A) 0 - 100 mg/dL Blood Venous blood specimen / Unknown [place] [facility] [facility] Provider LAB BLOOD ORDERABLES Martha l Result * Colonoscopy (01/26/2018) [facility] Colonoscopy no interpretation , abstracted Anatomical Region Laterality Modality Other [place] [facility] Provider HEALTH MAINTENANCE Final Result * Hepatitis C Screening (10/15/2013) [facility] Hepatitis C Screening abstracted [place] [facility] Provider HEALTH MAINTENANCE Final Result from Last 3 Months or Most Recently Relevant to Health Maintenance Insurance MEDICARE FOR[place] [address] [employer] MEDICARE ADVANTAGE Care Teams Drop Wirer Relationship Specialty Start Date End Date Ramona Mayer MD [address] [place] [address] PCP - General Internal Medicine 04/16/20
[2025-05-27 13:32] VITALS: BMI 24.6
== END 2025-05-27 14:30 | disposition home or self-care (01) ==
LOC: HO.HOS 13:20
PROVIDERS: PCP Internal Medicine; Visit Provider Orthopaedic Surgery
DX: M17.0 Bilateral primary osteoarthritis of knee (principal)
CPT/HCPCS: 20610

== ENCOUNTER → 2025-05-27 13:20 | Outpatient (BNVA) | payer MEDICARE, OTHER, SELFPAY | PROVIDERS: PCP Internal Medicine; Visit Provider Orthopaedic Surgery | DX: M17.0 Bilateral primary osteoarthritis of knee (principal) | CPT/HCPCS: 20610; J2003; J7318 ==